=== PATIENT | male | born 1970 | race Caucasian/White ===

== ENCOUNTER 2017-07-27 15:32 | Emergency (ER) | payer MEDICAID, BC | END 2017-07-28 00:44 | disposition left against medical advice (07) | LOC: FTE 07-28 00:44 | DX: S82.91XA Unspecified fracture of right lower leg, initial encounter for closed fracture (principal); I10 Essential (primary) hypertension; E11.9 Type 2 diabetes mellitus without complications; X58.XXXA Exposure to other specified factors, initial encounter; Y92.9 Unspecified place or not applicable | CPT/HCPCS: 29515; 73610-RT; 73700; 93971; 99284-25 ==

== ENCOUNTER 2017-07-29 12:41 | Emergency (ER) | payer MEDICAID | END 2017-07-29 14:02 | disposition home or self-care (01) | LOC: FTE 12:41 | DX: M79.604 Pain in right leg (principal); I10 Essential (primary) hypertension; E11.9 Type 2 diabetes mellitus without complications | CPT/HCPCS: 99283; Z7502 ==

== ENCOUNTER 2018-04-06 03:09 | Inpatient (IN) | payer MEDICAID, OTHER ==
[2018-04-06] MEDS: SODIUM CHLORIDE 0.9% 500 ML BAG IV* (03:16)
[2018-04-06] MEDS ORDERED: FENTAnyl 50 MCG/ML VIAL IV (03:30)
[2018-04-06 03:51] LABS: ADD MAN DIFF? NO
[2018-04-06] MEDS ORDERED: ONDANSETRON 4 MG INJ IV (04:00)
[2018-04-06] MEDS ORDERED: ACETAMINOPHEN 325 MG TAB PO (04:00)
[2018-04-06 04:06] LABS: INR 1.16; PT RATIO 1.2
[2018-04-06 04:07] LABS: AADO2 Arterial 276.4 mmHg (7.0-24.0); ABNORMAL IP MESSAGE 1; Allen Test ACCEPTAB; Arterial Base Excess -3.5 mmol/L (-3.0-3); Arterial Blood Gas Oxygen Sat 99.3 mmHG (95.0-98.0); Arterial COHb 0.6 % (0.0-3.0); Arterial Fraction of Oxyhgb 98.6 % (93.0-99.0); Arterial HCO3 22.2 mmol/L (22.0-26.0); Arterial MetHb 0.1 % (0.0-1.5); Arterial Total Hemglobin 11.8 g/dl (12.0-18.0); Arterial pCO2 42.1 mmhg (35-45); BASOPHIL # 0.1 10^3/ul (0.0-0.1); BASOPHILS % 0.4 % (0.0-2.0); EOSINOPHILS # 0.1 10^3/ul (0.0-0.5); EOSINOPHILS % 0.7 % (0.0-7.0); HEMATOCRIT 36.9 % (42.0-52.0); HEMOGLOBIN 11.5 g/dl (14.0-18.0); LYMPHOCYTES # 4.4 10^3/ul (0.8-2.9); LYMPHOCYTES % 24.6 % (15.0-51.0); MEAN CORPUSCULAR HEMOGLOBIN 29.9 pg (29.0-33.0); MEAN CORPUSCULAR HGB CONC 31.2 g/dl (32.0-37.0); MEAN CORPUSCULAR VOLUME 96.1 fl (82.0-101.0); MODE VENT - AC; MONOCYTE # 0.7 10^3/ul (0.3-0.9); MONOCYTES % 3.9 % (0.0-11.0); NEUTROPHIL # 12.6 10^3/ul (1.6-7.5); NEUTROPHILS % 69.9 % (39.0-77.0); PARTIAL THROMBOPLASTIN TIME 35.5 Sec (23.0-35.0); PLATELET COUNT 300 10^3/UL (140-415); POSITIVE DIFF @See below; RED BLOOD COUNT 3.84 10^6/ul (4.70-6.10); RED CELL DISTRIBUTION WIDTH 13.7 % (11.5-14.5); Site Right Radial
[2018-04-06 04:09] LABS: ALANINE AMINOTRANSFERASE 24 IU/L (13-69); ALBUMIN 3.7 g/dl (3.3-4.9); ALBUMIN/GLOBULIN RATIO 1.02; ALKALINE PHOSPHATASE 161 IU/L (42-121); ANION GAP 20 (5-13); ASPARTATE AMINO TRANSFERASE 40 IU/L (15-46); BILIRUBIN,INDIRECT 0.2 mg/dl (0-1.1); BILIRUBIN,TOTAL 0.2 mg/dl (0.2-1.3); BLOOD UREA NITROGEN 49 mg/dl (7-20); CALCIUM 9.5 mg/dl (8.4-10.2); CARBON DIOXIDE 20 mmol/L (21-31); CHLORIDE 100 mmol/L (97-110); CREATININE 5.45 mg/dl (0.61-1.24); Estimated GFR 11 mL/min (>60); GLUCOSE 142 mg/dl (70-220); MAGNESIUM 2.5 mg/dl (1.7-2.5); PHOSPHORUS 9.8 mg/dl (2.5-4.9); POTASSIUM 5.5 mmol/L (3.5-5.1); SODIUM 140 mmol/L (135-144); TOTAL PROTEIN 7.3 g/dl (6.1-8.1)
[2018-04-06] MEDS ORDERED: PROPOFOL 100 ML (04:13)
[2018-04-06 04:20] LABS: TROPONIN-I 0.052 ng/ml (0.000-0.120)
[2018-04-06] MEDS ORDERED: MEPERIDINE 25 MG INJ IV ×2 (04:30)
[2018-04-06] MEDS ORDERED: ACETAMINOPHEN 650 MG SUPP PR (04:30)
[2018-04-06] MEDS: SODIUM CHLORIDE 0.9% 1L BAG IV* (04:44)
[2018-04-06] MEDS: FENTAnyl 50 MCG/ML VIAL IV ×4 (04:46→05:10)
[2018-04-06] MEDS: CEFEPIME 1GM/50 ML (PMX) 50 ML IVPB (05:22)
[2018-04-06] MEDS: VANCOMYCIN 1 GM (PMX) 250 ML IVPB (05:22)
[2018-04-06] MEDS ORDERED: VANCOMYCIN IV PER PHARMACY XX (06:00)
[2018-04-06] MEDS ORDERED: IPRATROPIUM (HFA) 12.9 GM INHALER INH (06:00)
[2018-04-06] MEDS: HEPARIN 5,000 UNIT/1 ML VIAL SC ×3 (06:00→22:00)
[2018-04-06] MEDS ORDERED: DOCUSATE SODIUM 100 MG CAP PO (06:00)
[2018-04-06] MEDS ORDERED: BISACODYL (EC) 5 MG TAB PO (06:00)
[2018-04-06] MEDS ORDERED: ALBUTEROL HFA 8 GM INHALER INH (06:00)
[2018-04-06] MEDS: SOD CHLORIDE 0.9% 1,000 ML IV (06:16)
[2018-04-06] MEDS: VECURONIUM 100 MG in DEXTROSE 5% 100 ML IV (06:17)
[2018-04-06] MEDS: PANTOPRAZOLE 40 MG INJ IV (06:20)
[2018-04-06] MEDS: PIPER-TAZO 2.25 GM (PMX) 50 ML IVPB ×2 (06:20→17:57)
[2018-04-06] MEDS: PROPOFOL 100 ML IV (06:30)
[2018-04-06] MEDS: MIDAZOLAM (DRIP) 50 mg/50 mL 50 ML IV ×3 (06:31→19:23)
[2018-04-06] MEDS ORDERED: CA CHLORIDE 10% 10 ML SYRINGE (07:00)
[2018-04-06] MEDS ORDERED: NA BICARBONATE 8.4% 50 ML SYG (07:00)
[2018-04-06] MEDS ORDERED: EPINEPHrine 0.1 MG/ML SYG (07:00)
[2018-04-06 08:56] LABS: LACTIC ACID 0.9 mmol/L (0.5-2.0)
[2018-04-06 09:31] LABS: ADD MAN DIFF? NO
[2018-04-06 09:43] LABS: WHITE BLOOD COUNT 11.5 10^3/ul (4.8-10.8)
[2018-04-06 09:43] LABS: ABNORMAL IP MESSAGE 1; BASOPHILS % 0.3 % (0.0-2.0); EOSINOPHILS % 0.1 % (0.0-7.0); HEMOGLOBIN 10.6 g/dl (14.0-18.0); LYMPHOCYTES # 0.7 10^3/ul (0.8-2.9); LYMPHOCYTES % 6.5 % (15.0-51.0); MEAN CORPUSCULAR HEMOGLOBIN 29.9 pg (29.0-33.0); MEAN CORPUSCULAR HGB CONC 32.1 g/dl (32.0-37.0); MEAN PLATELET VOLUME 9.8 fl (7.4-10.4); MONOCYTE # 0.8 10^3/ul (0.3-0.9); MONOCYTES % 6.5 % (0.0-11.0); NEUTROPHIL # 9.9 10^3/ul (1.6-7.5); PLATELET COUNT 200 10^3/UL (140-415); POSITIVE DIFF @See below; RED BLOOD COUNT 3.55 10^6/ul (4.70-6.10); RED CELL DISTRIBUTION WIDTH 13.7 % (11.5-14.5)
[2018-04-06 09:49] LABS: AADO2 Arterial 174.7 mmHg (7.0-24.0); Allen Test ACCEPTAB; Arterial Blood Gas Oxygen Sat 98.2 mmHG (95.0-98.0); Arterial COHb 0.6 % (0.0-3.0); Arterial Fraction of Oxyhgb 97.3 % (93.0-99.0); Arterial HCO3 21.6 mmol/L (22.0-26.0); Arterial MetHb 0.3 % (0.0-1.5); Arterial Total Hemglobin 12.1 g/dl (12.0-18.0); Arterial pCO2 34.3 mmhg (35-45); MODE VENT - AC; Site Right Radial; Temperature 32.8 C
[2018-04-06 09:50] LABS: ALANINE AMINOTRANSFERASE 37 IU/L (13-69); ALBUMIN/GLOBULIN RATIO 0.96; ALKALINE PHOSPHATASE 147 IU/L (42-121); ANION GAP 17 (5-13); ASPARTATE AMINO TRANSFERASE 35 IU/L (15-46); BILIRUBIN,INDIRECT 0.1 mg/dl (0-1.1); BILIRUBIN,TOTAL 0.1 mg/dl (0.2-1.3); BLOOD UREA NITROGEN 52 mg/dl (7-20); CALCIUM 8.6 mg/dl (8.4-10.2); CARBON DIOXIDE 19 mmol/L (21-31); CHLORIDE 102 mmol/L (97-110); CREATININE 5.14 mg/dl (0.61-1.24); Estimated GFR 12 mL/min (>60); GLUCOSE 141 mg/dl (70-220); MAGNESIUM 2.3 mg/dl (1.7-2.5); POTASSIUM 4.2 mmol/L (3.5-5.1); SODIUM 138 mmol/L (135-144); TOTAL PROTEIN 6.1 g/dl (6.1-8.1)
[2018-04-06 09:51] LABS: CREATINE KINASE 173 IU/L (23-200)
[2018-04-06 09:51] LABS: LACTIC ACID 0.9 mmol/L (0.5-2.0)
[2018-04-06 10:03] LABS: CK INDEX 3.9; CK-MB 6.68 ng/ml (0.0-2.4)
[2018-04-06 10:07] LABS: TROPONIN-I 0.123 ng/ml (0.000-0.120)
[2018-04-06] MEDS: FENTAnyl (DRIP) 1000 mcg/100mL 100 ML IV (11:59)
[2018-04-06] MEDS: OCULAR LUBRICANT 3.5 GM OPH OINT BOTH EYES ×3 (12:00→17:59)
[2018-04-06] MEDS: ARTIFICIAL TEARS 15 ML OPH BOTH EYES ×3 (12:00→18:00)
[2018-04-06 13:43] LABS: LACTIC ACID 0.8 mmol/L (0.5-2.0)
[2018-04-06 13:43] LABS: ADD UMIC YES; UR AMORPHOUS CRYSTAL FEW /HPF (NONE SEEN); UR ASCORBIC ACID NEGATIVE (NEGATIVE); UR BACTERIA FEW /HPF (NONE SEEN); UR BILIRUBIN (Dip) NEGATIVE (NEGATIVE); UR BLOOD (Dip) 1+ mg/dL (NEGATIVE); UR CLARITY SLIGHTLY CLOUDY (CLEAR); UR COLOR YELLOW (YELLOW); UR GLUCOSE (Dip) 2+ mg/dL (NEGATIVE); UR KETONES (Dip) 1+ mg/dL (NEGATIVE); UR LEUKOCYTE ESTERASE (Dip) NEGATIVE Leu/ul (NEGATIVE); UR NITRITE (Dip) NEGATIVE (NEGATIVE); UR RBC 8 /HPF (0-5); UR SPECIFIC GRAVITY (Dip) 1.014 (1.003-1.030); UR TOTAL PROTEIN (Dip) 3+ mg/dl (NEGATIVE); UR UROBILINOGEN (Dip) NEGATIVE (NEGATIVE); UR WBC 7 /HPF (0-5)
[2018-04-06 13:56] LABS: AMPHETAMINE/METHAMPHETAMINE Negative (NEGATIVE); BARBITURATES Negative (NEGATIVE); CANNABINOIDS Negative (NEGATIVE); COCAINE Negative (NEGATIVE); OPIATES Negative (NEGATIVE)
[2018-04-06 14:10] LABS: BENZODIAZEPINES Positive (NEGATIVE)
[2018-04-06 14:57] LABS: ADD MAN DIFF? NO
[2018-04-06 14:59] LABS: WHITE BLOOD COUNT 15.4 10^3/ul (4.8-10.8)
[2018-04-06 14:59] LABS: ABNORMAL IP MESSAGE 1; BASOPHIL # 0.1 10^3/ul (0.0-0.1); BASOPHILS % 0.5 % (0.0-2.0); HEMATOCRIT 35.6 % (42.0-52.0); HEMOGLOBIN 11.5 g/dl (14.0-18.0); LYMPHOCYTES # 0.9 10^3/ul (0.8-2.9); LYMPHOCYTES % 5.9 % (15.0-51.0); MEAN CORPUSCULAR HEMOGLOBIN 29.9 pg (29.0-33.0); MEAN CORPUSCULAR HGB CONC 32.3 g/dl (32.0-37.0); MEAN CORPUSCULAR VOLUME 92.5 fl (82.0-101.0); MEAN PLATELET VOLUME 10.1 fl (7.4-10.4); MONOCYTE # 0.8 10^3/ul (0.3-0.9); MONOCYTES % 5.2 % (0.0-11.0); NEUTROPHIL # 13.4 10^3/ul (1.6-7.5); NEUTROPHILS % 87.4 % (39.0-77.0); PLATELET COUNT 204 10^3/UL (140-415); POSITIVE DIFF @See below; RED BLOOD COUNT 3.85 10^6/ul (4.70-6.10); RED CELL DISTRIBUTION WIDTH 13.7 % (11.5-14.5)
[2018-04-06 15:18] LABS: CREATINE KINASE 129 IU/L (23-200)
[2018-04-06 15:20] LABS: ALANINE AMINOTRANSFERASE 20 IU/L (13-69); ALBUMIN 3.1 g/dl (3.3-4.9); ALKALINE PHOSPHATASE 127 IU/L (42-121); ANION GAP 18 (5-13); ASPARTATE AMINO TRANSFERASE 34 IU/L (15-46); BLOOD UREA NITROGEN 57 mg/dl (7-20); CALCIUM 8.7 mg/dl (8.4-10.2); CARBON DIOXIDE 20 mmol/L (21-31); CHLORIDE 101 mmol/L (97-110); CREATININE 5.55 mg/dl (0.61-1.24); Estimated GFR 11 mL/min (>60); GLUCOSE 146 mg/dl (70-220); MAGNESIUM 2.2 mg/dl (1.7-2.5); POTASSIUM 4.1 mmol/L (3.5-5.1); SODIUM 139 mmol/L (135-144); TOTAL PROTEIN 5.9 g/dl (6.1-8.1)
[2018-04-06 15:30] LABS: CK-MB 6.47 ng/ml (0.0-2.4); TROPONIN-I 0.094 ng/ml (0.000-0.120)
[2018-04-06 16:05] LABS: AADO2 Arterial 149.1 mmHg (7.0-24.0); Arterial Base Excess -5.3 mmol/L (-3.0-3); Arterial Blood Gas Oxygen Sat 95.3 mmHG (95.0-98.0); Arterial COHb 0.5 % (0.0-3.0); Arterial Fraction of Oxyhgb 94.5 % (93.0-99.0); Arterial MetHb 0.3 % (0.0-1.5); Arterial Total Hemglobin 12.9 g/dl (12.0-18.0); Arterial pCO2 31.9 mmhg (35-45); MODE VENT - AC; Site Right Brachial; Temperature 32.9 C
[2018-04-06] MEDS: ASPIRIN 300 MG SUPP PR (16:20)
[2018-04-06 17:31] LABS: LACTIC ACID 0.9 mmol/L (0.5-2.0)
[2018-04-06] MEDS: ATORVASTATIN 20 MG TAB PO (20:45)
[2018-04-06 21:18] LABS: ADD MAN DIFF? NO
[2018-04-06 21:19] LABS: BASOPHIL # 0.1 10^3/ul (0.0-0.1); BASOPHILS % 0.5 % (0.0-2.0); HEMOGLOBIN 12.1 g/dl (14.0-18.0); LYMPHOCYTES % 5.8 % (15.0-51.0); MEAN CORPUSCULAR HEMOGLOBIN 29.5 pg (29.0-33.0); MEAN CORPUSCULAR HGB CONC 31.8 g/dl (32.0-37.0); MEAN CORPUSCULAR VOLUME 92.7 fl (82.0-101.0); MEAN PLATELET VOLUME 10.2 fl (7.4-10.4); MONOCYTE # 0.7 10^3/ul (0.3-0.9); MONOCYTES % 4.2 % (0.0-11.0); NEUTROPHIL # 15.5 10^3/ul (1.6-7.5); NEUTROPHILS % 88.2 % (39.0-77.0); PLATELET COUNT 211 10^3/UL (140-415); POSITIVE DIFF @See below; RED CELL DISTRIBUTION WIDTH 13.7 % (11.5-14.5)
[2018-04-06 21:19] LABS: WHITE BLOOD COUNT 17.6 10^3/ul (4.8-10.8)
[2018-04-06 21:33] LABS: Allen Test ACCEPTAB; Arterial Base Excess -2.6 mmol/L (-3.0-3); Arterial Blood Gas Oxygen Sat 95.2 mmHG (95.0-98.0); Arterial COHb 0.7 % (0.0-3.0); Arterial Fraction of Oxyhgb 94.2 % (93.0-99.0); Arterial HCO3 24.3 mmol/L (22.0-26.0); Arterial MetHb 0.3 % (0.0-1.5); MODE VENT-AC; Site Right Radial
[2018-04-06 21:51] LABS: ALANINE AMINOTRANSFERASE 29 IU/L (13-69); ALBUMIN 2.9 g/dl (3.3-4.9); ALKALINE PHOSPHATASE 129 IU/L (42-121); ANION GAP 15 (5-13); ASPARTATE AMINO TRANSFERASE 25 IU/L (15-46); BILIRUBIN,INDIRECT 0.1 mg/dl (0-1.1); BILIRUBIN,TOTAL 0.1 mg/dl (0.2-1.3); BLOOD UREA NITROGEN 61 mg/dl (7-20); CALCIUM 8.2 mg/dl (8.4-10.2); CARBON DIOXIDE 21 mmol/L (21-31); CHLORIDE 102 mmol/L (97-110); CREATINE KINASE 94 IU/L (23-200); CREATININE 5.54 mg/dl (0.61-1.24); Estimated GFR 11 mL/min (>60); GLUCOSE 142 mg/dl (70-220); MAGNESIUM 2.3 mg/dl (1.7-2.5); POTASSIUM 4.5 mmol/L (3.5-5.1); SODIUM 138 mmol/L (135-144); TOTAL PROTEIN 6.1 g/dl (6.1-8.1)
[2018-04-06 22:00] LABS: CK INDEX 6.4; CK-MB 6.05 ng/ml (0.0-2.4); TROPONIN-I 0.075 ng/ml (0.000-0.120)
[2018-04-06 23:31] LABS: Allen Test ACCEPTAB; Arterial Base Excess -4.9 mmol/L (-3.0-3); Arterial COHb 0.7 % (0.0-3.0); Arterial MetHb 0.3 % (0.0-1.5); Arterial Total Hemglobin 13.5 g/dl (12.0-18.0); Arterial pCO2 30.8 mmhg (35-45); MODE VENT - AC; Site Right Radial; Temperature 33.1 C
[2018-04-07] MEDS: SOD CHLORIDE 0.9% 1,000 ML IV ×2 (00:04→21:00)
[2018-04-07 03:14] LABS: AADO2 Arterial 187.5 mmHg (7.0-24.0); Allen Test ACCEPTAB; Arterial Base Excess -6.1 mmol/L (-3.0-3); Arterial Blood Gas Oxygen Sat 96.2 mmHG (95.0-98.0); Arterial COHb 0.6 % (0.0-3.0); Arterial Fraction of Oxyhgb 95.3 % (93.0-99.0); Arterial HCO3 18.2 mmol/L (22.0-26.0); Arterial MetHb 0.3 % (0.0-1.5); Arterial Total Hemglobin 13.3 g/dl (12.0-18.0); Arterial pCO2 26.9 mmhg (35-45); MODE VENT-AC; Site Right Radial; Temperature 32.9 C
[2018-04-07] MEDS: ACETAMINOPHEN 650MG/20.3ML CUP PO ×4 (04:30→21:57)
[2018-04-07 04:34] LABS: ADD MAN DIFF? NO
[2018-04-07 04:39] LABS: ABNORMAL IP MESSAGE 1; BASOPHIL # 0.1 10^3/ul (0.0-0.1); BASOPHILS % 0.6 % (0.0-2.0); EOSINOPHILS % 0.1 % (0.0-7.0); HEMATOCRIT 37.7 % (42.0-52.0); HEMOGLOBIN 12.3 g/dl (14.0-18.0); LYMPHOCYTES % 5.3 % (15.0-51.0); MEAN CORPUSCULAR HEMOGLOBIN 29.9 pg (29.0-33.0); MEAN CORPUSCULAR HGB CONC 32.6 g/dl (32.0-37.0); MEAN CORPUSCULAR VOLUME 91.5 fl (82.0-101.0); MONOCYTE # 0.7 10^3/ul (0.3-0.9); MONOCYTES % 3.8 % (0.0-11.0); NEUTROPHIL # 15.9 10^3/ul (1.6-7.5); NEUTROPHILS % 88.9 % (39.0-77.0); PLATELET COUNT 214 10^3/UL (140-415); POSITIVE DIFF @See below; RED BLOOD COUNT 4.12 10^6/ul (4.70-6.10); RED CELL DISTRIBUTION WIDTH 13.8 % (11.5-14.5)
[2018-04-07 04:39] LABS: WHITE BLOOD COUNT 17.9 10^3/ul (4.8-10.8)
[2018-04-07 05:01] LABS: CREATINE KINASE 73 IU/L (23-200)
[2018-04-07 05:03] LABS: ALANINE AMINOTRANSFERASE 23 IU/L (13-69); ALBUMIN 2.9 g/dl (3.3-4.9); ALKALINE PHOSPHATASE 134 IU/L (42-121); ANION GAP 18 (5-13); ASPARTATE AMINO TRANSFERASE 23 IU/L (15-46); BILIRUBIN,INDIRECT 0.1 mg/dl (0-1.1); BILIRUBIN,TOTAL 0.1 mg/dl (0.2-1.3); BLOOD UREA NITROGEN 63 mg/dl (7-20); CALCIUM 8.3 mg/dl (8.4-10.2); CARBON DIOXIDE 20 mmol/L (21-31); CHLORIDE 102 mmol/L (97-110); CREATININE 5.79 mg/dl (0.61-1.24); Estimated GFR 10 mL/min (>60); GLUCOSE 128 mg/dl (70-220); MAGNESIUM 2.4 mg/dl (1.7-2.5); POTASSIUM 4.6 mmol/L (3.5-5.1); SODIUM 140 mmol/L (135-144); TOTAL PROTEIN 6.1 g/dl (6.1-8.1)
[2018-04-07 05:12] LABS: CK INDEX 7.8; CK-MB 5.72 ng/ml (0.0-2.4)
[2018-04-07] MEDS ORDERED: HEPARIN 5,000 UNIT/0.5 ML VIAL ×2 (05:34→21:01)
[2018-04-07] MEDS: ACETAMINOPHEN 650 MG SUPP PR ×4 (05:37→17:49)
[2018-04-07] MEDS: OCULAR LUBRICANT 3.5 GM OPH OINT BOTH EYES ×4 (05:38→17:50)
[2018-04-07] MEDS: ARTIFICIAL TEARS 15 ML OPH BOTH EYES ×4 (05:38→17:50)
[2018-04-07] MEDS: PANTOPRAZOLE 40 MG INJ IV (05:38)
[2018-04-07] MEDS: PIPER-TAZO 2.25 GM (PMX) 50 ML IVPB ×3 (05:39→21:16)
[2018-04-07] MEDS: HEPARIN 5,000 UNIT/1 ML VIAL SC ×3 (05:40→21:16)
[2018-04-07] MEDS: MIDAZOLAM (DRIP) 50 mg/50 mL 50 ML IV (05:58)
[2018-04-07 08:13] LABS: ADD MAN DIFF? NO
[2018-04-07 08:18] LABS: WHITE BLOOD COUNT 17.9 10^3/ul (4.8-10.8)
[2018-04-07 08:18] LABS: BASOPHIL # 0.1 10^3/ul (0.0-0.1); BASOPHILS % 0.3 % (0.0-2.0); EOSINOPHILS # 0.1 10^3/ul (0.0-0.5); EOSINOPHILS % 0.3 % (0.0-7.0); HEMATOCRIT 38.3 % (42.0-52.0); HEMOGLOBIN 12.7 g/dl (14.0-18.0); LYMPHOCYTES # 1.1 10^3/ul (0.8-2.9); LYMPHOCYTES % 6.1 % (15.0-51.0); MEAN CORPUSCULAR HEMOGLOBIN 30.2 pg (29.0-33.0); MEAN CORPUSCULAR HGB CONC 33.2 g/dl (32.0-37.0); MEAN PLATELET VOLUME 10.4 fl (7.4-10.4); MONOCYTE # 0.6 10^3/ul (0.3-0.9); MONOCYTES % 3.2 % (0.0-11.0); NEUTROPHIL # 15.8 10^3/ul (1.6-7.5); NEUTROPHILS % 88.4 % (39.0-77.0); PLATELET COUNT 225 10^3/UL (140-415); POSITIVE DIFF @See below; RED BLOOD COUNT 4.21 10^6/ul (4.70-6.10); RED CELL DISTRIBUTION WIDTH 14.1 % (11.5-14.5)
[2018-04-07] MEDS: VECURONIUM 100 MG in DEXTROSE 5% 100 ML IV (08:21)
[2018-04-07 08:37] LABS: INR 1.41; PROTIME 17.5 Sec (11.9-14.9); PT RATIO 1.4
[2018-04-07 08:38] LABS: PARTIAL THROMBOPLASTIN TIME 42.2 Sec (23.0-35.0)
[2018-04-07 08:41] LABS: AMYLASE 261 U/L (11-123)
[2018-04-07 08:41] LABS: LIPASE 1707 U/L (23-300)
[2018-04-07 08:47] LABS: ALANINE AMINOTRANSFERASE 20 IU/L (13-69); ALBUMIN 3.1 g/dl (3.3-4.9); ALKALINE PHOSPHATASE 128 IU/L (42-121); ANION GAP 17 (5-13); ASPARTATE AMINO TRANSFERASE 22 IU/L (15-46); BLOOD UREA NITROGEN 66 mg/dl (7-20); CALCIUM 8.6 mg/dl (8.4-10.2); CARBON DIOXIDE 21 mmol/L (21-31); CHLORIDE 101 mmol/L (97-110); CREATININE 6.04 mg/dl (0.61-1.24); Estimated GFR 10 mL/min (>60); GLUCOSE 118 mg/dl (70-220); MAGNESIUM 2.3 mg/dl (1.7-2.5); POTASSIUM 4.6 mmol/L (3.5-5.1); SODIUM 139 mmol/L (135-144); TOTAL PROTEIN 5.9 g/dl (6.1-8.1)
[2018-04-07 09:04] LABS: AADO2 Arterial 182.6 mmHg (7.0-24.0); Allen Test ACCEPTAB; Arterial Base Excess -4.5 mmol/L (-3.0-3); Arterial Blood Gas Oxygen Sat 96.3 mmHG (95.0-98.0); Arterial COHb 0.6 % (0.0-3.0); Arterial Fraction of Oxyhgb 95.4 % (93.0-99.0); Arterial HCO3 19.9 mmol/L (22.0-26.0); Arterial MetHb 0.3 % (0.0-1.5); Arterial Total Hemglobin 13.3 g/dl (12.0-18.0); MODE VENT - AC; Site Left Radial
[2018-04-07 09:11] LABS: HEPATITIS B SURFACE ANTIGEN NEGATIVE (NEGATIVE)
[2018-04-07] MEDS: ASPIRIN 300 MG SUPP PR (09:24)
[2018-04-07 09:29] LABS: HEPATITIS B SURFACE ANTIBODY POSITIVE (NEGATIVE)
[2018-04-07 10:03] LABS: CREATINE KINASE 69 IU/L (23-200)
[2018-04-07 10:58] LABS: ANISOCYTOSIS 1+ (0-0); BAND NEUTROPHILS #M 7.5 10^3/ul (0.0-0.6); BAND NEUTROPHILS % (M) 42 % (0-4); BURR CELLS 3+ (0-0); EOSINOPHILS % (M) 1 % (0-7); LYMPHOCYTES #M 1.2 10^3/ul (0.8-2.9); LYMPHOCYTES % (M) 7 % (15-51); MONOCYTE #M 0.3 10^3/ul (0.3-0.9); MONOCYTES % (M) 2 % (0-11); PLATELET ESTIMATE NORMAL; POIKILOCYTOSIS 3+ (0-0); POLYCHROMASIA 1+ (0-0); SEG NEUT #M 9.9 10^3/ul (1.6-7.5); SEGMENTED NEUTROPHILS (M) % 48 % (39-77); SMUDGE%M 17 % (0-0); SPHEROCYTES 1+ (0-0)
[2018-04-07 15:10] LABS: HEMATOCRIT 36.4 % (42.0-52.0); HEMOGLOBIN 11.9 g/dl (14.0-18.0); MEAN CORPUSCULAR HEMOGLOBIN 29.9 pg (29.0-33.0); MEAN CORPUSCULAR HGB CONC 32.7 g/dl (32.0-37.0); MEAN CORPUSCULAR VOLUME 91.5 fl (82.0-101.0); MEAN PLATELET VOLUME 10.5 fl (7.4-10.4); PLATELET COUNT 231 10^3/UL (140-415); POSITIVE DIFF @See below; RED BLOOD COUNT 3.98 10^6/ul (4.70-6.10)
[2018-04-07 15:10] LABS: WHITE BLOOD COUNT 19.6 10^3/ul (4.8-10.8)
[2018-04-07 15:18] LABS: ADD MAN DIFF? YES
[2018-04-07 15:20] LABS: ALANINE AMINOTRANSFERASE 25 IU/L (13-69); ALBUMIN 2.6 g/dl (3.3-4.9); ALBUMIN/GLOBULIN RATIO 0.86; ANION GAP 15 (5-13); ASPARTATE AMINO TRANSFERASE 19 IU/L (15-46); BILIRUBIN,INDIRECT 0.2 mg/dl (0-1.1); BILIRUBIN,TOTAL 0.2 mg/dl (0.2-1.3); BLOOD UREA NITROGEN 68 mg/dl (7-20); CALCIUM 7.8 mg/dl (8.4-10.2); CARBON DIOXIDE 17 mmol/L (21-31); CHLORIDE 105 mmol/L (97-110); CREATININE 5.54 mg/dl (0.61-1.24); Estimated GFR 11 mL/min (>60); GLUCOSE 111 mg/dl (70-220); MAGNESIUM 2.3 mg/dl (1.7-2.5); POTASSIUM 4.8 mmol/L (3.5-5.1); SODIUM 137 mmol/L (135-144); TOTAL PROTEIN 5.6 g/dl (6.1-8.1)
[2018-04-07 15:21] LABS: CREATINE KINASE 62 IU/L (23-200)
[2018-04-07 15:25] LABS: ALKALINE PHOSPHATASE 116 IU/L (42-121)
[2018-04-07 15:32] LABS: CK INDEX 7.9; CK-MB 4.92 ng/ml (0.0-2.4); TROPONIN-I 0.052 ng/ml (0.000-0.120)
[2018-04-07] MEDS: PHENYLephrine 40 MG in DEXTROSE 5% 496 ML IV (17:01)
[2018-04-07 17:04] LABS: ANISOCYTOSIS 1+ (0-0); BAND NEUTROPHILS #M 8.4 10^3/ul (0.0-0.6); BAND NEUTROPHILS % (M) 43 % (0-4); GIANT THROMBO% (M) 1 % (0-0); LYMPHOCYTES #M 0.3 10^3/ul (0.8-2.9); LYMPHOCYTES % (M) 2 % (15-51); MONOCYTE #M 0.1 10^3/ul (0.3-0.9); MONOCYTES % (M) 1 % (0-11); PLATELET ESTIMATE NORMAL; POIKILOCYTOSIS 3+ (0-0); SEG NEUT #M 12.2 10^3/ul (1.6-7.5); SEGMENTED NEUTROPHILS (M) % 54 % (39-77); SMUDGE%M 18 % (0-0)
[2018-04-07] MEDS: ATORVASTATIN 20 MG TAB PO (21:06)
[2018-04-07 21:17] LABS: AADO2 Arterial 171.4 mmHg (7.0-24.0); Allen Test ACCEPTAB; Arterial Fraction of Oxyhgb 94.8 % (93.0-99.0); Arterial HCO3 18.1 mmol/L (22.0-26.0); Arterial MetHb 0.3 % (0.0-1.5); Arterial Total Hemglobin 13.7 g/dl (12.0-18.0); Arterial pCO2 29.7 mmhg (35-45); MODE VENT - AC; Site Right Radial; Temperature 35.4 C
[2018-04-07 21:20] LABS: ABNORMAL IP MESSAGE 1; HEMATOCRIT 39.3 % (42.0-52.0); HEMOGLOBIN 12.8 g/dl (14.0-18.0); MEAN CORPUSCULAR HEMOGLOBIN 29.4 pg (29.0-33.0); MEAN CORPUSCULAR HGB CONC 32.6 g/dl (32.0-37.0); MEAN CORPUSCULAR VOLUME 90.3 fl (82.0-101.0); MEAN PLATELET VOLUME 10.5 fl (7.4-10.4); PLATELET COUNT 291 10^3/UL (140-415); POSITIVE DIFF @See below; RED BLOOD COUNT 4.35 10^6/ul (4.70-6.10)
[2018-04-07 21:20] LABS: WHITE BLOOD COUNT 27.8 10^3/ul (4.8-10.8)
[2018-04-07 21:24] LABS: ADD MAN DIFF? YES
[2018-04-07 21:43] LABS: ALANINE AMINOTRANSFERASE 26 IU/L (13-69); ALBUMIN 2.9 g/dl (3.3-4.9); ALBUMIN/GLOBULIN RATIO 1.11; ALKALINE PHOSPHATASE 121 IU/L (42-121); ANION GAP 19 (5-13); ASPARTATE AMINO TRANSFERASE 21 IU/L (15-46); BLOOD UREA NITROGEN 74 mg/dl (7-20); CALCIUM 8.3 mg/dl (8.4-10.2); CARBON DIOXIDE 18 mmol/L (21-31); CHLORIDE 103 mmol/L (97-110); CREATININE 5.88 mg/dl (0.61-1.24); Estimated GFR 10 mL/min (>60); GLUCOSE 109 mg/dl (70-220); LIPASE 1716 U/L (23-300); MAGNESIUM 2.3 mg/dl (1.7-2.5); POTASSIUM 5.1 mmol/L (3.5-5.1); SODIUM 140 mmol/L (135-144); TOTAL PROTEIN 5.5 g/dl (6.1-8.1)
[2018-04-07 21:46] LABS: AMYLASE 360 U/L (11-123)
[2018-04-07] MEDS: FENTAnyl (DRIP) 1000 mcg/100mL 100 ML IV (21:49)
[2018-04-07 22:00] LABS: ANISOCYTOSIS 1+ (0-0); BAND NEUTROPHILS #M 6.3 10^3/ul (0.0-0.6); BAND NEUTROPHILS % (M) 23 % (0-4); LYMPHOCYTES #M 1.9 10^3/ul (0.8-2.9); LYMPHOCYTES % (M) 7 % (15-51); MONOCYTE #M 0.5 10^3/ul (0.3-0.9); MONOCYTES % (M) 2 % (0-11); PLATELET ESTIMATE NORMAL; POIKILOCYTOSIS 3+ (0-0); SEG NEUT #M 20.7 10^3/ul (1.6-7.5); SEGMENTED NEUTROPHILS (M) % 68 % (39-77); SMUDGE%M 1 % (0-0)
[2018-04-08] MEDS: ARTIFICIAL TEARS 15 ML OPH BOTH EYES ×4 (00:14→17:35)
[2018-04-08] MEDS: OCULAR LUBRICANT 3.5 GM OPH OINT BOTH EYES ×4 (00:17→17:35)
[2018-04-08] MEDS: MIDAZOLAM (DRIP) 50 mg/50 mL 50 ML IV ×2 (01:04→12:00)
[2018-04-08 03:18] LABS: AADO2 Arterial 151.4 mmHg (7.0-24.0); Allen Test ACCEPTAB; Arterial Base Excess -2.9 mmol/L (-3.0-3); Arterial Blood Gas Oxygen Sat 96.6 mmHG (95.0-98.0); Arterial COHb 0.8 % (0.0-3.0); Arterial Fraction of Oxyhgb 95.5 % (93.0-99.0); Arterial HCO3 20.6 mmol/L (22.0-26.0); Arterial MetHb 0.3 % (0.0-1.5); Arterial Total Hemglobin 15.5 g/dl (12.0-18.0); Arterial pCO2 32.6 mmhg (35-45); MODE VENT - AC; Site Right Radial
[2018-04-08] MEDS: PHENYLephrine 40 MG in DEXTROSE 5% 496 ML IV ×2 (04:05→16:16)
[2018-04-08] MEDS ORDERED: HEPARIN 5,000 UNIT/0.5 ML VIAL ×3 (04:09→21:01)
[2018-04-08] MEDS: ACETAMINOPHEN 650MG/20.3ML CUP PO ×4 (04:27→21:41)
[2018-04-08 04:52] LABS: ADD MAN DIFF? NO
[2018-04-08 04:57] LABS: WHITE BLOOD COUNT 24.5 10^3/ul (4.8-10.8)
[2018-04-08 04:57] LABS: ABNORMAL IP MESSAGE 1; BASOPHIL # 0.1 10^3/ul (0.0-0.1); BASOPHILS % 0.4 % (0.0-2.0); EOSINOPHILS # 0.1 10^3/ul (0.0-0.5); EOSINOPHILS % 0.2 % (0.0-7.0); HEMATOCRIT 34.9 % (42.0-52.0); HEMOGLOBIN 11.4 g/dl (14.0-18.0); LYMPHOCYTES # 1.9 10^3/ul (0.8-2.9); LYMPHOCYTES % 7.7 % (15.0-51.0); MEAN CORPUSCULAR HEMOGLOBIN 29.3 pg (29.0-33.0); MEAN CORPUSCULAR HGB CONC 32.7 g/dl (32.0-37.0); MEAN CORPUSCULAR VOLUME 89.7 fl (82.0-101.0); MEAN PLATELET VOLUME 10.8 fl (7.4-10.4); NEUTROPHIL # 20.7 10^3/ul (1.6-7.5); NEUTROPHILS % 84.6 % (39.0-77.0); PLATELET COUNT 294 10^3/UL (140-415); POSITIVE DIFF @See below; RED BLOOD COUNT 3.89 10^6/ul (4.70-6.10); RED CELL DISTRIBUTION WIDTH 14.4 % (11.5-14.5)
[2018-04-08 05:17] LABS: AMYLASE 315 U/L (11-123)
[2018-04-08 05:17] LABS: LIPASE 1718 U/L (23-300)
[2018-04-08 05:20] LABS: VANCOMYCIN,RANDOM 9.1 ug/ml
[2018-04-08 05:20] LABS: INR 1.39; PROTIME 17.3 Sec (11.9-14.9); PT RATIO 1.4
[2018-04-08 05:21] LABS: PARTIAL THROMBOPLASTIN TIME 41.1 Sec (23.0-35.0)
[2018-04-08 05:24] LABS: ALANINE AMINOTRANSFERASE 20 IU/L (13-69); ALBUMIN/GLOBULIN RATIO 1.11; ALKALINE PHOSPHATASE 135 IU/L (42-121); ANION GAP 17 (5-13); ASPARTATE AMINO TRANSFERASE 19 IU/L (15-46); BLOOD UREA NITROGEN 74 mg/dl (7-20); CALCIUM 8.2 mg/dl (8.4-10.2); CARBON DIOXIDE 20 mmol/L (21-31); CHLORIDE 103 mmol/L (97-110); Estimated GFR 9 mL/min (>60); GLUCOSE 122 mg/dl (70-220); MAGNESIUM 2.3 mg/dl (1.7-2.5); POTASSIUM 4.9 mmol/L (3.5-5.1); SODIUM 140 mmol/L (135-144); TOTAL PROTEIN 5.7 g/dl (6.1-8.1)
[2018-04-08] MEDS: PIPER-TAZO 2.25 GM (PMX) 50 ML IVPB ×3 (05:59→21:05)
[2018-04-08] MEDS: PANTOPRAZOLE 40 MG INJ IV (06:00)
[2018-04-08] MEDS: HEPARIN 5,000 UNIT/1 ML VIAL SC ×3 (06:00→21:07)
[2018-04-08] MEDS: ACETAMINOPHEN 650 MG SUPP PR ×4 (06:00→17:35)
[2018-04-08] MEDS: LORAZEPAM 2 MG INJ IV ×2 (06:12→21:25)
[2018-04-08] MEDS: LEVETIRACETAM 1000 MG (PMX) 100 ML IVPB (07:58)
[2018-04-08] MEDS: ASPIRIN 300 MG SUPP PR (09:42)
[2018-04-08] MEDS: VANCOMYCIN 1 GM 250 ML IVPB (09:43)
[2018-04-08 10:03] LABS: CALCIUM 7.9 mg/dl (8.4-10.2)
[2018-04-08 10:13] LABS: INR 1.33; PROTIME 16.7 Sec (11.9-14.9); PT RATIO 1.3
[2018-04-08 10:14] LABS: PARTIAL THROMBOPLASTIN TIME 32.2 Sec (23.0-35.0)
[2018-04-08 10:54] LABS: AADO2 Arterial 153.9 mmHg (7.0-24.0); Allen Test ACCEPTAB; Arterial Base Excess -3.9 mmol/L (-3.0-3); Arterial Blood Gas Oxygen Sat 96.5 mmHG (95.0-98.0); Arterial COHb 0.3 % (0.0-3.0); Arterial Fraction of Oxyhgb 95.9 % (93.0-99.0); Arterial MetHb 0.3 % (0.0-1.5); Arterial Total Hemglobin 11.8 g/dl (12.0-18.0); Arterial pCO2 32.5 mmhg (35-45); MODE VENT - AC; Site Right Radial
[2018-04-08 10:56] LABS: FREE T4 (FREE THYROXINE) 1.64 ng/dl (0.64-1.79)
[2018-04-08 11:21] LABS: ADD MAN DIFF? NO
[2018-04-08 11:24] LABS: BASOPHIL # 0.1 10^3/ul (0.0-0.1); BASOPHILS % 0.5 % (0.0-2.0); EOSINOPHILS # 0.1 10^3/ul (0.0-0.5); EOSINOPHILS % 0.6 % (0.0-7.0); HEMATOCRIT 33.9 % (42.0-52.0); HEMOGLOBIN 11.3 g/dl (14.0-18.0); LYMPHOCYTES # 2.2 10^3/ul (0.8-2.9); LYMPHOCYTES % 9.3 % (15.0-51.0); MEAN CORPUSCULAR HEMOGLOBIN 30.1 pg (29.0-33.0); MEAN CORPUSCULAR HGB CONC 33.3 g/dl (32.0-37.0); MEAN CORPUSCULAR VOLUME 90.2 fl (82.0-101.0); MEAN PLATELET VOLUME 10.7 fl (7.4-10.4); MONOCYTE # 0.9 10^3/ul (0.3-0.9); MONOCYTES % 3.9 % (0.0-11.0); NEUTROPHIL # 19.3 10^3/ul (1.6-7.5); NEUTROPHILS % 82.9 % (39.0-77.0); PLATELET COUNT 271 10^3/UL (140-415); POSITIVE DIFF @See below; RED BLOOD COUNT 3.76 10^6/ul (4.70-6.10); RED CELL DISTRIBUTION WIDTH 14.3 % (11.5-14.5)
[2018-04-08 11:24] LABS: WHITE BLOOD COUNT 23.3 10^3/ul (4.8-10.8)
[2018-04-08 11:29] LABS: ALANINE AMINOTRANSFERASE 25 IU/L (13-69); ALBUMIN 2.6 g/dl (3.3-4.9); ALBUMIN/GLOBULIN RATIO 1.08; ALKALINE PHOSPHATASE 159 IU/L (42-121); AMYLASE 267 U/L (11-123); ANION GAP 16 (5-13); ASPARTATE AMINO TRANSFERASE 23 IU/L (15-46); BLOOD UREA NITROGEN 80 mg/dl (7-20); CALCIUM 8.1 mg/dl (8.4-10.2); CARBON DIOXIDE 19 mmol/L (21-31); CHLORIDE 103 mmol/L (97-110); CREATININE 6.46 mg/dl (0.61-1.24); Estimated GFR 9 mL/min (>60); GLUCOSE 133 mg/dl (70-220); LIPASE 1475 U/L (23-300); MAGNESIUM 2.3 mg/dl (1.7-2.5); PHOSPHORUS 7.4 mg/dl (2.5-4.9); POTASSIUM 5.2 mmol/L (3.5-5.1); SODIUM 138 mmol/L (135-144)
[2018-04-08 11:40] LABS: TROPONIN-I 0.091 ng/ml (0.000-0.120)
[2018-04-08 12:30] LABS: BAND NEUTROPHILS #M 5.3 10^3/ul (0.0-0.6); BAND NEUTROPHILS % (M) 23 % (0-4); BASOPHIL #M 0.4 10^3/ul (0.0-0.0); BASOPHILS % (M) 2 % (0-2); BURR CELLS 3+ (0-0); LYMPHOCYTES #M 1.1 10^3/ul (0.8-2.9); LYMPHOCYTES % (M) 5 % (15-51); MONOCYTE #M 0.4 10^3/ul (0.3-0.9); MONOCYTES % (M) 2 % (0-11); PLATELET ESTIMATE NORMAL; POIKILOCYTOSIS 2+ (0-0); REACTIVE LYMPHOCYTES #M 0.9 10^3/ul (0.0-0.0); REACTIVE LYMPHOCYTES% (M) 4 % (0-0); SEG NEUT #M 16.1 10^3/ul (1.6-7.5); SEGMENTED NEUTROPHILS (M) % 64 % (39-77); SMUDGE%M 3 % (0-0); SPHEROCYTES 1+ (0-0)
[2018-04-08 15:15] LABS: WHITE BLOOD COUNT 20.2 10^3/ul (4.8-10.8)
[2018-04-08 15:15] LABS: HEMOGLOBIN 10.6 g/dl (14.0-18.0); MEAN CORPUSCULAR HEMOGLOBIN 29.9 pg (29.0-33.0); MEAN CORPUSCULAR HGB CONC 33.1 g/dl (32.0-37.0); MEAN CORPUSCULAR VOLUME 90.4 fl (82.0-101.0); MEAN PLATELET VOLUME 9.7 fl (7.4-10.4); PLATELET COUNT 250 10^3/UL (140-415); POSITIVE DIFF @See below; RED BLOOD COUNT 3.54 10^6/ul (4.70-6.10); RED CELL DISTRIBUTION WIDTH 14.6 % (11.5-14.5)
[2018-04-08 15:32] LABS: ADD MAN DIFF? YES
[2018-04-08 15:36] LABS: ALANINE AMINOTRANSFERASE 26 IU/L (13-69); ALBUMIN 2.8 g/dl (3.3-4.9); ALBUMIN/GLOBULIN RATIO 1.03; ALKALINE PHOSPHATASE 138 IU/L (42-121); AMYLASE 220 U/L (11-123); ANION GAP 16 (5-13); ASPARTATE AMINO TRANSFERASE 19 IU/L (15-46); BLOOD UREA NITROGEN 83 mg/dl (7-20); CARBON DIOXIDE 19 mmol/L (21-31); CHLORIDE 103 mmol/L (97-110); CREATININE 6.79 mg/dl (0.61-1.24); Estimated GFR 9 mL/min (>60); GLUCOSE 123 mg/dl (70-220); INR 1.42; LIPASE 818 U/L (23-300); MAGNESIUM 2.3 mg/dl (1.7-2.5); PHOSPHORUS 7.7 mg/dl (2.5-4.9); POTASSIUM 5.2 mmol/L (3.5-5.1); PROTIME 17.6 Sec (11.9-14.9); PT RATIO 1.4; SODIUM 138 mmol/L (135-144); TOTAL PROTEIN 5.5 g/dl (6.1-8.1)
[2018-04-08 15:47] LABS: TROPONIN-I 0.065 ng/ml (0.000-0.120)
[2018-04-08] MEDS: FENTAnyl (DRIP) 1000 mcg/100mL 100 ML IV (16:25)
[2018-04-08 16:39] LABS: BAND NEUTROPHILS #M 0.2 10^3/ul (0.0-0.6); BAND NEUTROPHILS % (M) 1 % (0-4); BASOPHIL #M 0.2 10^3/ul (0.0-0.0); BASOPHILS % (M) 1 % (0-2); GIANT THROMBO% (M) 2 % (0-0); LYMPHOCYTES #M 2.6 10^3/ul (0.8-2.9); LYMPHOCYTES % (M) 13 % (15-51); MYELOCYTES #M 0.2 10^3/ul (0.0-0.0); MYELOCYTES % (M) 1 % (0-0); PLATELET ESTIMATE NORMAL; POIKILOCYTOSIS 3+ (0-0); REACTIVE LYMPHOCYTES #M 0.2 10^3/ul (0.0-0.0); REACTIVE LYMPHOCYTES% (M) 1 % (0-0); SEG NEUT #M 16.8 10^3/ul (1.6-7.5); SEGMENTED NEUTROPHILS (M) % 83 % (39-77); SMUDGE%M 26 % (0-0)
[2018-04-08] MEDS: PROPOFOL 100 ML IV (20:20)
[2018-04-08] MEDS: SOD CHLORIDE 0.9% 1,000 ML IV (21:05)
[2018-04-08] MEDS: LEVETIRACETAM 500 MG (PMX) 100 ML IVPB (21:05)
[2018-04-08] MEDS: ATORVASTATIN 20 MG TAB PO (21:05)
[2018-04-09] MEDS: OCULAR LUBRICANT 3.5 GM OPH OINT BOTH EYES ×2 (01:01→05:03)
[2018-04-09] MEDS: ARTIFICIAL TEARS 15 ML OPH BOTH EYES ×5 (01:01→23:43)
[2018-04-09] MEDS: ACETAMINOPHEN 650 MG SUPP PR ×2 (01:02→05:03)
[2018-04-09] MEDS: PHENYLephrine 40 MG in DEXTROSE 5% 496 ML IV (04:03)
[2018-04-09] MEDS: PROPOFOL 100 ML IV ×3 (04:40→23:31)
[2018-04-09] MEDS: ACETAMINOPHEN 650MG/20.3ML CUP PO ×4 (04:41→21:30)
[2018-04-09] MEDS ORDERED: HEPARIN 5,000 UNIT/0.5 ML VIAL ×3 (05:01→21:15)
[2018-04-09] MEDS: PIPER-TAZO 2.25 GM (PMX) 50 ML IVPB ×3 (05:03→21:20)
[2018-04-09] MEDS: PANTOPRAZOLE 40 MG INJ IV (05:03)
[2018-04-09] MEDS: HEPARIN 5,000 UNIT/1 ML VIAL SC ×3 (05:04→21:29)
[2018-04-09 05:32] LABS: WHITE BLOOD COUNT 13.5 10^3/ul (4.8-10.8)
[2018-04-09 05:32] LABS: HEMATOCRIT 31.7 % (42.0-52.0); HEMOGLOBIN 10.3 g/dl (14.0-18.0); MEAN CORPUSCULAR HEMOGLOBIN 29.9 pg (29.0-33.0); MEAN CORPUSCULAR HGB CONC 32.5 g/dl (32.0-37.0); MEAN CORPUSCULAR VOLUME 91.9 fl (82.0-101.0); MEAN PLATELET VOLUME 10.5 fl (7.4-10.4); PLATELET COUNT 223 10^3/UL (140-415); POSITIVE DIFF @See below; RED BLOOD COUNT 3.45 10^6/ul (4.70-6.10); RED CELL DISTRIBUTION WIDTH 14.5 % (11.5-14.5)
[2018-04-09 05:35] LABS: ADD MAN DIFF? YES
[2018-04-09 05:38] LABS: ANION GAP 11 (5-13); BLOOD UREA NITROGEN 47 mg/dl (7-20); CALCIUM 7.9 mg/dl (8.4-10.2); CARBON DIOXIDE 26 mmol/L (21-31); CHLORIDE 99 mmol/L (97-110); CREATININE 3.97 mg/dl (0.61-1.24); Estimated GFR 16 mL/min (>60); GLUCOSE 159 mg/dl (70-220); PHOSPHORUS 5.4 mg/dl (2.5-4.9); POTASSIUM 4.2 mmol/L (3.5-5.1); SODIUM 136 mmol/L (135-144)
[2018-04-09 06:57] LABS: ANISOCYTOSIS 1+ (0-0); BAND NEUTROPHILS #M 0.8 10^3/ul (0.0-0.6); BAND NEUTROPHILS % (M) 6 % (0-4); BURR CELLS 1+ (0-0); EOSINOPHILS % (M) 2 % (0-7); LYMPHOCYTES #M 1.7 10^3/ul (0.8-2.9); LYMPHOCYTES % (M) 13 % (15-51); MONOCYTE #M 0.4 10^3/ul (0.3-0.9); MONOCYTES % (M) 3 % (0-11); PLATELET ESTIMATE NORMAL; POIKILOCYTOSIS 2+ (0-0); SEG NEUT #M 10.4 10^3/ul (1.6-7.5); SEGMENTED NEUTROPHILS (M) % 76 % (39-77); SMUDGE%M 1 % (0-0)
[2018-04-09 09:03] LABS: AADO2 Arterial 164.6 mmHg (7.0-24.0); Arterial Base Excess -0.4 mmol/L (-3.0-3); Arterial Blood Gas Oxygen Sat 95.6 mmHG (95.0-98.0); Arterial COHb 0.5 % (0.0-3.0); Arterial Fraction of Oxyhgb 94.8 % (93.0-99.0); Arterial HCO3 22.6 mmol/L (22.0-26.0); Arterial MetHb 0.3 % (0.0-1.5); Arterial pCO2 31.7 mmhg (35-45); MODE VENT - AC; Site Right Brachial
[2018-04-09] MEDS: LEVETIRACETAM 500 MG (PMX) 100 ML IVPB ×2 (09:47→22:26)
[2018-04-09] MEDS: ASPIRIN 300 MG SUPP PR (09:54)
[2018-04-09 10:22] LABS: HEMOGLOBIN A1C 6.2 % (0-5.9)
[2018-04-09] MEDS: SOD CHLORIDE 0.9% 1,000 ML IV (14:30)
[2018-04-09] MEDS: ATORVASTATIN 20 MG TAB PO (21:20)
[2018-04-09] MEDS: LORAZEPAM 2 MG INJ IV (23:38)
[2018-04-10] MEDS: ACETAMINOPHEN 650MG/20.3ML CUP PO ×2 (04:12→09:45)
[2018-04-10] MEDS ORDERED: HEPARIN 5,000 UNIT/0.5 ML VIAL ×3 (05:40→21:02)
[2018-04-10] MEDS: ARTIFICIAL TEARS 15 ML OPH BOTH EYES ×3 (05:42→17:47)
[2018-04-10] MEDS: PANTOPRAZOLE 40 MG INJ IV (05:42)
[2018-04-10] MEDS: PIPER-TAZO 2.25 GM (PMX) 50 ML IVPB ×3 (05:42→21:40)
[2018-04-10] MEDS: HEPARIN 5,000 UNIT/1 ML VIAL SC ×3 (05:44→21:55)
[2018-04-10 06:14] LABS: ADD MAN DIFF? NO
[2018-04-10 06:20] LABS: BASOPHIL # 0.1 10^3/ul (0.0-0.1); BASOPHILS % 0.5 % (0.0-2.0); EOSINOPHILS # 0.3 10^3/ul (0.0-0.5); EOSINOPHILS % 2.5 % (0.0-7.0); HEMATOCRIT 30.2 % (42.0-52.0); HEMOGLOBIN 9.5 g/dl (14.0-18.0); LYMPHOCYTES # 1.6 10^3/ul (0.8-2.9); LYMPHOCYTES % 14.8 % (15.0-51.0); MEAN CORPUSCULAR HEMOGLOBIN 29.5 pg (29.0-33.0); MEAN CORPUSCULAR HGB CONC 31.5 g/dl (32.0-37.0); MEAN CORPUSCULAR VOLUME 93.8 fl (82.0-101.0); MEAN PLATELET VOLUME 10.9 fl (7.4-10.4); MONOCYTE # 0.7 10^3/ul (0.3-0.9); NEUTROPHIL # 7.9 10^3/ul (1.6-7.5); NEUTROPHILS % 74.4 % (39.0-77.0); PLATELET COUNT 184 10^3/UL (140-415); RED BLOOD COUNT 3.22 10^6/ul (4.70-6.10); RED CELL DISTRIBUTION WIDTH 14.6 % (11.5-14.5)
[2018-04-10 06:20] LABS: WHITE BLOOD COUNT 10.6 10^3/ul (4.8-10.8)
[2018-04-10 06:51] LABS: ANION GAP 12 (5-13); BLOOD UREA NITROGEN 58 mg/dl (7-20); CARBON DIOXIDE 23 mmol/L (21-31); CHLORIDE 103 mmol/L (97-110); CREATININE 5.07 mg/dl (0.61-1.24); Estimated GFR 12 mL/min (>60); GLUCOSE 115 mg/dl (70-220); MAGNESIUM 2.3 mg/dl (1.7-2.5); PHOSPHORUS 7.8 mg/dl (2.5-4.9); POTASSIUM 4.3 mmol/L (3.5-5.1); SODIUM 138 mmol/L (135-144)
[2018-04-10] MEDS: SOD CHLORIDE 0.9% 1,000 ML IV (08:04)
[2018-04-10] MEDS: ASPIRIN 81 MG TAB PO (09:44)
[2018-04-10] MEDS: LEVETIRACETAM 500 MG (PMX) 100 ML IVPB ×2 (09:44→20:38)
[2018-04-10] MEDS: VALPROATE INJ 1,000 MG in SOD CHLORIDE 0.9% 100 ML IVPB (10:55)
[2018-04-10 12:22] LABS: VALPROATE < 10 ug/ml (50-100)
[2018-04-10] MEDS: PROPOFOL 100 ML IV ×3 (13:10→22:21)
[2018-04-10 16:24] LABS: VALPROATE 10 ug/ml (50-100)
[2018-04-10] MEDS: LORAZEPAM 2 MG INJ IV (17:47)
[2018-04-10] MEDS: VALPROATE INJ 500 MG in SOD CHLORIDE 0.9% 50 ML IVPB ×2 (17:53→21:40)
[2018-04-10] MEDS: ATORVASTATIN 20 MG TAB PO (21:05)
[2018-04-11] MEDS: MIDAZOLAM (DRIP) 50 mg/50 mL 50 ML IV (02:59)
[2018-04-11] MEDS: PROPOFOL 100 ML IV ×3 (02:59→17:37)
[2018-04-11] MEDS: SOD CHLORIDE 0.9% 1,000 ML IV ×2 (04:04→23:16)
[2018-04-11] MEDS ORDERED: HEPARIN 5,000 UNIT/0.5 ML VIAL ×3 (05:39→22:26)
[2018-04-11] MEDS: PANTOPRAZOLE 40 MG INJ IV (05:47)
[2018-04-11] MEDS: ARTIFICIAL TEARS 15 ML OPH BOTH EYES ×5 (05:47→23:16)
[2018-04-11] MEDS: PIPER-TAZO 2.25 GM (PMX) 50 ML IVPB ×3 (05:48→22:28)
[2018-04-11] MEDS: HEPARIN 5,000 UNIT/1 ML VIAL SC ×3 (05:55→22:30)
[2018-04-11 06:15] LABS: ADD MAN DIFF? NO
[2018-04-11 06:23] LABS: WHITE BLOOD COUNT 10.5 10^3/ul (4.8-10.8)
[2018-04-11 06:23] LABS: BASOPHILS % 0.4 % (0.0-2.0); EOSINOPHILS # 0.5 10^3/ul (0.0-0.5); EOSINOPHILS % 4.3 % (0.0-7.0); HEMATOCRIT 31.2 % (42.0-52.0); HEMOGLOBIN 9.9 g/dl (14.0-18.0); LYMPHOCYTES # 1.6 10^3/ul (0.8-2.9); LYMPHOCYTES % 15.1 % (15.0-51.0); MEAN CORPUSCULAR HEMOGLOBIN 29.7 pg (29.0-33.0); MEAN CORPUSCULAR HGB CONC 31.7 g/dl (32.0-37.0); MEAN CORPUSCULAR VOLUME 93.7 fl (82.0-101.0); MEAN PLATELET VOLUME 10.5 fl (7.4-10.4); MONOCYTE # 0.9 10^3/ul (0.3-0.9); MONOCYTES % 8.7 % (0.0-11.0); NEUTROPHIL # 7.4 10^3/ul (1.6-7.5); NEUTROPHILS % 70.6 % (39.0-77.0); PLATELET COUNT 201 10^3/UL (140-415); RED BLOOD COUNT 3.33 10^6/ul (4.70-6.10); RED CELL DISTRIBUTION WIDTH 14.5 % (11.5-14.5)
[2018-04-11 06:52] LABS: ANION GAP 11 (5-13); BLOOD UREA NITROGEN 34 mg/dl (7-20); CALCIUM 8.2 mg/dl (8.4-10.2); CARBON DIOXIDE 26 mmol/L (21-31); CHLORIDE 102 mmol/L (97-110); CREATININE 3.59 mg/dl (0.61-1.24); Estimated GFR 18 mL/min (>60); GLUCOSE 80 mg/dl (70-220); MAGNESIUM 2.1 mg/dl (1.7-2.5); PHOSPHORUS 5.8 mg/dl (2.5-4.9); POTASSIUM 3.7 mmol/L (3.5-5.1); SODIUM 139 mmol/L (135-144)
[2018-04-11 06:59] LABS: VANCOMYCIN,RANDOM 8.2 ug/ml
[2018-04-11] MEDS: ASPIRIN 81 MG TAB PO (09:50)
[2018-04-11] MEDS: LEVETIRACETAM 500 MG (PMX) 100 ML IVPB ×2 (09:50→21:21)
[2018-04-11] MEDS: LORAZEPAM 2 MG INJ IV ×3 (10:02→23:05)
[2018-04-11] MEDS: VALPROATE INJ 500 MG in SOD CHLORIDE 0.9% 50 ML IVPB ×2 (11:19→16:21)
[2018-04-11] MEDS: VANCOMYCIN 1 GM 250 ML IVPB (12:27)
[2018-04-11] MEDS: LIDOCAINE 1% (MPF) 5 ML VIAL SC (15:25)
[2018-04-11 16:31] LABS: VALPROATE 22 ug/ml (50-100)
[2018-04-11] MEDS: VALPROATE INJ 1,000 MG in SOD CHLORIDE 0.9% 100 ML IVPB (17:03)
[2018-04-11 19:53] LABS: VALPROATE 45 ug/ml (50-100)
[2018-04-11] MEDS: VALPROATE INJ 750 MG in SOD CHLORIDE 0.9% 50 ML IVPB (20:24)
[2018-04-11] MEDS: ATORVASTATIN 20 MG TAB PO (21:21)
[2018-04-11] MEDS: hydrALAzine 20 MG INJ IV (23:16)
[2018-04-12] MEDS: VALPROATE INJ 750 MG in SOD CHLORIDE 0.9% 50 ML IVPB ×4 (02:07→20:23)
[2018-04-12] MEDS: LORAZEPAM 2 MG INJ IV ×4 (02:25→18:47)
[2018-04-12] MEDS ORDERED: HEPARIN 5,000 UNIT/0.5 ML VIAL ×3 (05:34→21:30)
[2018-04-12] MEDS: PANTOPRAZOLE 40 MG INJ IV (05:36)
[2018-04-12] MEDS: PIPER-TAZO 2.25 GM (PMX) 50 ML IVPB ×3 (05:36→21:51)
[2018-04-12] MEDS: ARTIFICIAL TEARS 15 ML OPH BOTH EYES ×3 (05:37→18:14)
[2018-04-12] MEDS: HEPARIN 5,000 UNIT/1 ML VIAL SC ×3 (05:42→21:50)
[2018-04-12 05:43] LABS: ADD MAN DIFF? NO
[2018-04-12 05:51] LABS: WHITE BLOOD COUNT 7.3 10^3/ul (4.8-10.8)
[2018-04-12 05:51] LABS: BASOPHILS % 0.4 % (0.0-2.0); EOSINOPHILS # 0.3 10^3/ul (0.0-0.5); EOSINOPHILS % 4.5 % (0.0-7.0); HEMOGLOBIN 9.3 g/dl (14.0-18.0); LYMPHOCYTES # 1.5 10^3/ul (0.8-2.9); LYMPHOCYTES % 20.1 % (15.0-51.0); MEAN CORPUSCULAR HEMOGLOBIN 29.5 pg (29.0-33.0); MEAN CORPUSCULAR HGB CONC 32.1 g/dl (32.0-37.0); MEAN CORPUSCULAR VOLUME 92.1 fl (82.0-101.0); MEAN PLATELET VOLUME 10.5 fl (7.4-10.4); MONOCYTE # 0.5 10^3/ul (0.3-0.9); MONOCYTES % 7.2 % (0.0-11.0); NEUTROPHIL # 4.9 10^3/ul (1.6-7.5); NEUTROPHILS % 66.8 % (39.0-77.0); PLATELET COUNT 188 10^3/UL (140-415); RED BLOOD COUNT 3.15 10^6/ul (4.70-6.10); RED CELL DISTRIBUTION WIDTH 14.5 % (11.5-14.5)
[2018-04-12 06:17] LABS: ANION GAP 13 (5-13); BLOOD UREA NITROGEN 43 mg/dl (7-20); CALCIUM 7.9 mg/dl (8.4-10.2); CARBON DIOXIDE 21 mmol/L (21-31); CHLORIDE 107 mmol/L (97-110); CREATININE 4.17 mg/dl (0.61-1.24); Estimated GFR 15 mL/min (>60); GLUCOSE 137 mg/dl (70-220); MAGNESIUM 2.2 mg/dl (1.7-2.5); PHOSPHORUS 7.3 mg/dl (2.5-4.9); POTASSIUM 3.9 mmol/L (3.5-5.1); SODIUM 141 mmol/L (135-144)
[2018-04-12 06:18] LABS: VALPROATE 36 ug/ml (50-100)
[2018-04-12] MEDS: PROPOFOL 100 ML IV ×3 (06:53→18:47)
[2018-04-12] MEDS: LEVETIRACETAM 500 MG (PMX) 100 ML IVPB ×2 (09:07→21:35)
[2018-04-12] MEDS: ASPIRIN 81 MG TAB PO (10:01)
[2018-04-12] MEDS: VALPROATE INJ 1,000 MG in SOD CHLORIDE 0.9% 100 ML IVPB (11:26)
[2018-04-12 14:32] LABS: VALPROATE 37 ug/ml (50-100)
[2018-04-12] MEDS: hydrALAzine 20 MG INJ IV (19:50)
[2018-04-12] MEDS: ATORVASTATIN 20 MG TAB PO (21:46)
[2018-04-13] MEDS: ARTIFICIAL TEARS 15 ML OPH BOTH EYES ×4 (00:07→17:47)
[2018-04-13] MEDS: VALPROATE INJ 750 MG in SOD CHLORIDE 0.9% 50 ML IVPB ×4 (01:49→20:08)
[2018-04-13] MEDS: PROPOFOL 100 ML IV ×4 (04:21→21:33)
[2018-04-13] MEDS: LORAZEPAM 2 MG INJ IV (04:52)
[2018-04-13 04:54] LABS: ADD MAN DIFF? NO
[2018-04-13 04:59] LABS: WHITE BLOOD COUNT 7.6 10^3/ul (4.8-10.8)
[2018-04-13 04:59] LABS: BASOPHILS % 0.4 % (0.0-2.0); EOSINOPHILS # 0.5 10^3/ul (0.0-0.5); EOSINOPHILS % 5.9 % (0.0-7.0); HEMATOCRIT 30.3 % (42.0-52.0); HEMOGLOBIN 9.7 g/dl (14.0-18.0); LYMPHOCYTES # 1.7 10^3/ul (0.8-2.9); LYMPHOCYTES % 22.1 % (15.0-51.0); MEAN CORPUSCULAR HEMOGLOBIN 29.7 pg (29.0-33.0); MEAN CORPUSCULAR VOLUME 92.7 fl (82.0-101.0); MONOCYTE # 0.5 10^3/ul (0.3-0.9); MONOCYTES % 7.1 % (0.0-11.0); NEUTROPHIL # 4.8 10^3/ul (1.6-7.5); NEUTROPHILS % 63.1 % (39.0-77.0); PLATELET COUNT 198 10^3/UL (140-415); RED BLOOD COUNT 3.27 10^6/ul (4.70-6.10); RED CELL DISTRIBUTION WIDTH 13.9 % (11.5-14.5)
[2018-04-13 05:23] LABS: ANION GAP 12 (5-13); BLOOD UREA NITROGEN 32 mg/dl (7-20); CALCIUM 8.5 mg/dl (8.4-10.2); CARBON DIOXIDE 25 mmol/L (21-31); CHLORIDE 104 mmol/L (97-110); CREATININE 3.64 mg/dl (0.61-1.24); Estimated GFR 18 mL/min (>60); GLUCOSE 177 mg/dl (70-220); MAGNESIUM 2.3 mg/dl (1.7-2.5); PHOSPHORUS 5.4 mg/dl (2.5-4.9); POTASSIUM 3.6 mmol/L (3.5-5.1); SODIUM 141 mmol/L (135-144)
[2018-04-13 05:54] LABS: VALPROATE 43 ug/ml (50-100)
[2018-04-13] MEDS ORDERED: HEPARIN 5,000 UNIT/0.5 ML VIAL ×3 (06:12→22:18)
[2018-04-13] MEDS: PANTOPRAZOLE 40 MG INJ IV (06:14)
[2018-04-13] MEDS: PIPER-TAZO 2.25 GM (PMX) 50 ML IVPB ×3 (06:14→22:21)
[2018-04-13] MEDS: HEPARIN 5,000 UNIT/1 ML VIAL SC ×3 (06:15→22:28)
[2018-04-13] MEDS ORDERED: EPOETIN 4000 UNITS/1 ML INJ (ESRD) SC (07:30)
[2018-04-13] MEDS: ASPIRIN 81 MG TAB PO (08:25)
[2018-04-13] MEDS: LEVETIRACETAM 500 MG (PMX) 100 ML IVPB ×2 (08:26→21:29)
[2018-04-13] MEDS: ATORVASTATIN 20 MG TAB PO (21:29)
[2018-04-14] MEDS: ARTIFICIAL TEARS 15 ML OPH BOTH EYES ×4 (00:22→17:20)
[2018-04-14] MEDS: VALPROATE INJ 750 MG in SOD CHLORIDE 0.9% 50 ML IVPB (01:52)
[2018-04-14] MEDS: hydrALAzine 20 MG INJ IV ×2 (01:54→17:35)
[2018-04-14] MEDS: PROPOFOL 100 ML IV ×5 (02:26→21:59)
[2018-04-14 04:20] LABS: ADD MAN DIFF? NO
[2018-04-14 04:24] LABS: BASOPHILS % 0.3 % (0.0-2.0); EOSINOPHILS # 0.6 10^3/ul (0.0-0.5); HEMATOCRIT 28.9 % (42.0-52.0); LYMPHOCYTES # 1.4 10^3/ul (0.8-2.9); LYMPHOCYTES % 20.2 % (15.0-51.0); MEAN CORPUSCULAR HEMOGLOBIN 29.2 pg (29.0-33.0); MEAN CORPUSCULAR HGB CONC 31.1 g/dl (32.0-37.0); MEAN CORPUSCULAR VOLUME 93.8 fl (82.0-101.0); MEAN PLATELET VOLUME 10.1 fl (7.4-10.4); MONOCYTE # 0.4 10^3/ul (0.3-0.9); MONOCYTES % 5.7 % (0.0-11.0); NEUTROPHIL # 4.4 10^3/ul (1.6-7.5); NEUTROPHILS % 64.1 % (39.0-77.0); PLATELET COUNT 210 10^3/UL (140-415); RED BLOOD COUNT 3.08 10^6/ul (4.70-6.10); RED CELL DISTRIBUTION WIDTH 14.1 % (11.5-14.5)
[2018-04-14 04:24] LABS: WHITE BLOOD COUNT 6.9 10^3/ul (4.8-10.8)
[2018-04-14 04:41] LABS: ANION GAP 12 (5-13); BLOOD UREA NITROGEN 43 mg/dl (7-20); CALCIUM 8.3 mg/dl (8.4-10.2); CARBON DIOXIDE 26 mmol/L (21-31); CHLORIDE 104 mmol/L (97-110); CREATININE 5.06 mg/dl (0.61-1.24); Estimated GFR 12 mL/min (>60); GLUCOSE 152 mg/dl (70-220); MAGNESIUM 2.4 mg/dl (1.7-2.5); PHOSPHORUS 6.6 mg/dl (2.5-4.9); POTASSIUM 3.7 mmol/L (3.5-5.1); SODIUM 142 mmol/L (135-144)
[2018-04-14] MEDS ORDERED: HEPARIN 5,000 UNIT/0.5 ML VIAL ×3 (04:53→22:31)
[2018-04-14] MEDS: PIPER-TAZO 2.25 GM (PMX) 50 ML IVPB ×3 (05:02→21:49)
[2018-04-14] MEDS: PANTOPRAZOLE 40 MG INJ IV (05:02)
[2018-04-14] MEDS: HEPARIN 5,000 UNIT/1 ML VIAL SC ×3 (05:04→22:35)
[2018-04-14] MEDS ORDERED: EPOETIN 10000 UNITS/1 ML INJ (ESRD) SC (08:00)
[2018-04-14] MEDS: LEVETIRACETAM 500 MG (PMX) 100 ML IVPB ×2 (08:06→21:22)
[2018-04-14] MEDS: ASPIRIN 81 MG TAB PO (08:40)
[2018-04-14] MEDS: VALPROATE IVPB ×3 (10:17→19:58)
[2018-04-14] MEDS: SOD CHLORIDE 0.9% IVPB ×3 (10:17→19:58)
[2018-04-14] MEDS: VANCOMYCIN 1 GM 250 ML IVPB (11:41)
[2018-04-14] MEDS: ATORVASTATIN 20 MG TAB PO (21:50)
[2018-04-15] MEDS: ARTIFICIAL TEARS 15 ML OPH BOTH EYES ×4 (00:11→18:12)
[2018-04-15] MEDS: VALPROATE IVPB ×4 (03:21→21:24)
[2018-04-15] MEDS: SOD CHLORIDE 0.9% IVPB ×4 (03:21→21:24)
[2018-04-15] MEDS: PROPOFOL 100 ML IV ×5 (03:24→21:31)
[2018-04-15] MEDS ORDERED: HEPARIN 5,000 UNIT/0.5 ML VIAL ×4 (05:23→21:20)
[2018-04-15] MEDS: PANTOPRAZOLE 40 MG INJ IV (05:27)
[2018-04-15] MEDS: PIPER-TAZO 2.25 GM (PMX) 50 ML IVPB ×3 (05:27→21:24)
[2018-04-15] MEDS: HEPARIN 5,000 UNIT/1 ML VIAL SC ×3 (05:33→21:26)
[2018-04-15 06:19] LABS: ADD MAN DIFF? NO
[2018-04-15 06:25] LABS: BASOPHILS % 0.3 % (0.0-2.0); EOSINOPHILS # 0.6 10^3/ul (0.0-0.5); EOSINOPHILS % 6.3 % (0.0-7.0); HEMATOCRIT 30.1 % (42.0-52.0); HEMOGLOBIN 9.7 g/dl (14.0-18.0); LYMPHOCYTES # 1.7 10^3/ul (0.8-2.9); LYMPHOCYTES % 18.4 % (15.0-51.0); MEAN CORPUSCULAR HEMOGLOBIN 29.8 pg (29.0-33.0); MEAN CORPUSCULAR HGB CONC 32.2 g/dl (32.0-37.0); MEAN CORPUSCULAR VOLUME 92.6 fl (82.0-101.0); MEAN PLATELET VOLUME 9.9 fl (7.4-10.4); MONOCYTE # 0.5 10^3/ul (0.3-0.9); MONOCYTES % 5.6 % (0.0-11.0); NEUTROPHIL # 6.2 10^3/ul (1.6-7.5); PLATELET COUNT 226 10^3/UL (140-415); RED BLOOD COUNT 3.25 10^6/ul (4.70-6.10); RED CELL DISTRIBUTION WIDTH 14.1 % (11.5-14.5)
[2018-04-15 06:25] LABS: WHITE BLOOD COUNT 9.1 10^3/ul (4.8-10.8)
[2018-04-15 06:43] LABS: INR 1.04; PROTIME 13.7 Sec (11.9-14.9); PT RATIO 1.1
[2018-04-15 07:01] LABS: ANION GAP 9 (5-13); BLOOD UREA NITROGEN 32 mg/dl (7-20); CALCIUM 8.5 mg/dl (8.4-10.2); CARBON DIOXIDE 28 mmol/L (21-31); CHLORIDE 104 mmol/L (97-110); CREATININE 3.87 mg/dl (0.61-1.24); Estimated GFR 17 mL/min (>60); GLUCOSE 157 mg/dl (70-220); MAGNESIUM 2.4 mg/dl (1.7-2.5); PHOSPHORUS 5.6 mg/dl (2.5-4.9); POTASSIUM 3.9 mmol/L (3.5-5.1); SODIUM 141 mmol/L (135-144)
[2018-04-15] MEDS: LEVETIRACETAM 500 MG (PMX) 100 ML IVPB ×2 (09:13→21:27)
[2018-04-15] MEDS: ASPIRIN 81 MG TAB PO (09:13)
[2018-04-15] MEDS: LORAZEPAM 2 MG INJ IV (12:55)
[2018-04-15] MEDS: ATORVASTATIN 20 MG TAB PO (21:24)
[2018-04-16] MEDS: ARTIFICIAL TEARS 15 ML OPH BOTH EYES ×4 (01:06→17:56)
[2018-04-16] MEDS: SOD CHLORIDE 0.9% IVPB ×4 (02:00→20:19)
[2018-04-16] MEDS: VALPROATE IVPB ×4 (02:00→20:19)
[2018-04-16] MEDS: PIPER-TAZO 2.25 GM (PMX) 50 ML IVPB ×3 (05:20→22:11)
[2018-04-16] MEDS: PANTOPRAZOLE 40 MG INJ IV (05:20)
[2018-04-16] MEDS: PROPOFOL 100 ML IV ×4 (05:21→20:19)
[2018-04-16] MEDS: HEPARIN 5,000 UNIT/1 ML VIAL SC ×3 (05:23→22:12)
[2018-04-16 05:51] LABS: AADO2 Arterial 107.7 mmHg (7.0-24.0); Allen Test ACCEPTAB; Arterial Base Excess 1.2 mmol/L (-3.0-3); Arterial Blood Gas Oxygen Sat 93.6 mmHG (95.0-98.0); Arterial COHb 0.4 % (0.0-3.0); Arterial Fraction of Oxyhgb 93.1 % (93.0-99.0); Arterial MetHb 0.1 % (0.0-1.5); Arterial Total Hemglobin 12.2 g/dl (12.0-18.0); Arterial pCO2 54.3 mmhg (35-45); MODE VENT - AC; Site Right Radial
[2018-04-16 07:55] LABS: ADD MAN DIFF? NO
[2018-04-16 07:57] LABS: BASOPHILS % 0.2 % (0.0-2.0); EOSINOPHILS # 0.6 10^3/ul (0.0-0.5); EOSINOPHILS % 4.6 % (0.0-7.0); HEMOGLOBIN 9.5 g/dl (14.0-18.0); LYMPHOCYTES # 0.9 10^3/ul (0.8-2.9); LYMPHOCYTES % 7.1 % (15.0-51.0); MEAN CORPUSCULAR HEMOGLOBIN 29.5 pg (29.0-33.0); MEAN CORPUSCULAR HGB CONC 31.7 g/dl (32.0-37.0); MEAN CORPUSCULAR VOLUME 93.2 fl (82.0-101.0); MEAN PLATELET VOLUME 9.8 fl (7.4-10.4); MONOCYTE # 0.5 10^3/ul (0.3-0.9); NEUTROPHILS % 83.1 % (39.0-77.0); PLATELET COUNT 222 10^3/UL (140-415); RED BLOOD COUNT 3.22 10^6/ul (4.70-6.10); RED CELL DISTRIBUTION WIDTH 14.2 % (11.5-14.5)
[2018-04-16 07:57] LABS: WHITE BLOOD COUNT 13.2 10^3/ul (4.8-10.8)
[2018-04-16] MEDS: LORAZEPAM 2 MG INJ IV ×3 (07:58→20:06)
[2018-04-16 08:20] LABS: ANION GAP 11 (5-13); BLOOD UREA NITROGEN 45 mg/dl (7-20); CALCIUM 8.5 mg/dl (8.4-10.2); CARBON DIOXIDE 25 mmol/L (21-31); CHLORIDE 105 mmol/L (97-110); CREATININE 4.77 mg/dl (0.61-1.24); Estimated GFR 13 mL/min (>60); GLUCOSE 149 mg/dl (70-220); MAGNESIUM 2.6 mg/dl (1.7-2.5); PHOSPHORUS 7.5 mg/dl (2.5-4.9); POTASSIUM 3.8 mmol/L (3.5-5.1); SODIUM 141 mmol/L (135-144)
[2018-04-16] MEDS: ASPIRIN 81 MG TAB PO (08:49)
[2018-04-16] MEDS: LEVETIRACETAM 500 MG (PMX) 100 ML IVPB ×2 (08:49→21:41)
[2018-04-16] MEDS ORDERED: HEPARIN 5,000 UNIT/0.5 ML VIAL ×2 (13:45→22:09)
[2018-04-16 14:34] LABS: VALPROATE 27 ug/ml (50-100)
[2018-04-16] MEDS: hydrALAzine 20 MG INJ IV (20:15)
[2018-04-16] MEDS: ATORVASTATIN 20 MG TAB PO (21:01)
[2018-04-17] MEDS: ARTIFICIAL TEARS 15 ML OPH BOTH EYES ×4 (00:43→17:53)
[2018-04-17] MEDS: PROPOFOL 100 ML IV ×5 (01:26→19:28)
[2018-04-17] MEDS: VALPROATE IVPB ×3 (02:20→14:36)
[2018-04-17] MEDS: SOD CHLORIDE 0.9% IVPB ×3 (02:20→14:36)
[2018-04-17 05:14] LABS: ADD MAN DIFF? NO
[2018-04-17 05:16] LABS: BASOPHILS % 0.3 % (0.0-2.0); EOSINOPHILS # 0.5 10^3/ul (0.0-0.5); EOSINOPHILS % 3.4 % (0.0-7.0); HEMATOCRIT 27.2 % (42.0-52.0); HEMOGLOBIN 8.7 g/dl (14.0-18.0); LYMPHOCYTES # 1.6 10^3/ul (0.8-2.9); LYMPHOCYTES % 11.3 % (15.0-51.0); MEAN CORPUSCULAR HEMOGLOBIN 29.9 pg (29.0-33.0); MEAN CORPUSCULAR VOLUME 93.5 fl (82.0-101.0); MEAN PLATELET VOLUME 10.1 fl (7.4-10.4); MONOCYTE # 0.8 10^3/ul (0.3-0.9); MONOCYTES % 5.4 % (0.0-11.0); NEUTROPHIL # 11.5 10^3/ul (1.6-7.5); NEUTROPHILS % 78.8 % (39.0-77.0); PLATELET COUNT 221 10^3/UL (140-415); RED BLOOD COUNT 2.91 10^6/ul (4.70-6.10); RED CELL DISTRIBUTION WIDTH 14.5 % (11.5-14.5)
[2018-04-17 05:16] LABS: WHITE BLOOD COUNT 14.5 10^3/ul (4.8-10.8)
[2018-04-17] MEDS ORDERED: HEPARIN 5,000 UNIT/0.5 ML VIAL ×3 (05:34→21:42)
[2018-04-17 05:48] LABS: ANION GAP 9 (5-13); BLOOD UREA NITROGEN 31 mg/dl (7-20); CALCIUM 8.3 mg/dl (8.4-10.2); CARBON DIOXIDE 28 mmol/L (21-31); CHLORIDE 102 mmol/L (97-110); CREATININE 3.54 mg/dl (0.61-1.24); Estimated GFR 18 mL/min (>60); GLUCOSE 123 mg/dl (70-220); MAGNESIUM 2.4 mg/dl (1.7-2.5); PHOSPHORUS 5.2 mg/dl (2.5-4.9); POTASSIUM 3.6 mmol/L (3.5-5.1); SODIUM 139 mmol/L (135-144)
[2018-04-17] MEDS: PIPER-TAZO 2.25 GM (PMX) 50 ML IVPB ×3 (05:58→21:52)
[2018-04-17] MEDS: PANTOPRAZOLE 40 MG INJ IV (05:58)
[2018-04-17] MEDS: HEPARIN 5,000 UNIT/1 ML VIAL SC ×3 (05:59→21:56)
[2018-04-17] MEDS: LORAZEPAM 2 MG INJ IV ×4 (06:51→22:58)
[2018-04-17] MEDS: ASPIRIN 81 MG TAB PO (08:11)
[2018-04-17] MEDS: LEVETIRACETAM 500 MG (PMX) 100 ML IVPB ×2 (09:12→20:47)
[2018-04-17] MEDS: VALPROATE INJ 1,500 MG in SOD CHLORIDE 0.9% 100 ML IVPB (17:53)
[2018-04-17 20:29] LABS: VALPROATE 74 ug/ml (50-100)
[2018-04-17] MEDS: ATORVASTATIN 20 MG TAB PO (20:47)
[2018-04-18] MEDS: VALPROIC ACID LIQUID CUP 250 MG/5 ML CUP NGT ×5 (00:08→23:51)
[2018-04-18] MEDS: ARTIFICIAL TEARS 15 ML OPH BOTH EYES ×5 (00:08→23:51)
[2018-04-18] MEDS: PROPOFOL 100 ML IV ×4 (00:42→22:13)
[2018-04-18] MEDS: ACETAMINOPHEN 650MG/20.3ML CUP PO (01:28)
[2018-04-18 02:55] LABS: LACTIC ACID 1.3 mmol/L (0.5-2.0)
[2018-04-18] MEDS ORDERED: PHENYLephrine 20MG IN 250 ML 0 ML (03:50)
[2018-04-18] MEDS ORDERED: PHENYLephrine 20MG IN 250 ML 250 ML (03:58)
[2018-04-18] MEDS: PHENYLephrine 20MG IN 250 ML 250 ML IV (04:18)
[2018-04-18 05:09] LABS: ADD MAN DIFF? NO
[2018-04-18 05:24] LABS: WHITE BLOOD COUNT 24.5 10^3/ul (4.8-10.8)
[2018-04-18 05:24] LABS: ABNORMAL IP MESSAGE 1; BASOPHIL # 0.1 10^3/ul (0.0-0.1); BASOPHILS % 0.3 % (0.0-2.0); EOSINOPHILS # 0.4 10^3/ul (0.0-0.5); EOSINOPHILS % 1.6 % (0.0-7.0); HEMATOCRIT 30.5 % (42.0-52.0); HEMOGLOBIN 9.6 g/dl (14.0-18.0); LYMPHOCYTES # 1.7 10^3/ul (0.8-2.9); LYMPHOCYTES % 6.9 % (15.0-51.0); MEAN CORPUSCULAR HEMOGLOBIN 29.9 pg (29.0-33.0); MEAN CORPUSCULAR HGB CONC 31.5 g/dl (32.0-37.0); MEAN PLATELET VOLUME 10.1 fl (7.4-10.4); MONOCYTE # 1.5 10^3/ul (0.3-0.9); NEUTROPHIL # 20.6 10^3/ul (1.6-7.5); PLATELET COUNT 262 10^3/UL (140-415); POSITIVE DIFF @See below; RED BLOOD COUNT 3.21 10^6/ul (4.70-6.10); RED CELL DISTRIBUTION WIDTH 14.6 % (11.5-14.5)
[2018-04-18 05:56] LABS: ANION GAP 12 (5-13); BLOOD UREA NITROGEN 40 mg/dl (7-20); CALCIUM 8.3 mg/dl (8.4-10.2); CARBON DIOXIDE 24 mmol/L (21-31); CHLORIDE 103 mmol/L (97-110); CREATININE 4.96 mg/dl (0.61-1.24); Estimated GFR 12 mL/min (>60); GLUCOSE 104 mg/dl (70-220); MAGNESIUM 2.5 mg/dl (1.7-2.5); POTASSIUM 4.1 mmol/L (3.5-5.1); SODIUM 139 mmol/L (135-144)
[2018-04-18] MEDS ORDERED: HEPARIN 5,000 UNIT/0.5 ML VIAL ×3 (06:07→21:04)
[2018-04-18 06:09] LABS: NEUTROPHILS % 84.3 % (39.0-77.0)
[2018-04-18] MEDS: PIPER-TAZO 2.25 GM (PMX) 50 ML IVPB ×3 (06:14→22:12)
[2018-04-18] MEDS: PANTOPRAZOLE 40 MG INJ IV (06:14)
[2018-04-18] MEDS: HEPARIN 5,000 UNIT/1 ML VIAL SC ×3 (06:15→22:11)
[2018-04-18 06:59] LABS: VALPROATE 50 ug/ml (50-100)
[2018-04-18 08:05] LABS: LACTIC ACID 1.2 mmol/L (0.5-2.0)
[2018-04-18] MEDS: LEVETIRACETAM 500 MG (PMX) 100 ML IVPB ×2 (08:35→20:49)
[2018-04-18] MEDS: ASPIRIN 81 MG TAB PO (08:35)
[2018-04-18] MEDS ORDERED: VANCOMYCIN IV PER PHARMACY XX (09:00)
[2018-04-18] MEDS: VANCOMYCIN 1 GM 250 ML IVPB (13:18)
[2018-04-18 15:24] LABS: ANION GAP 12 (5-13); BLOOD UREA NITROGEN 21 mg/dl (7-20); CALCIUM 8.1 mg/dl (8.4-10.2); CARBON DIOXIDE 28 mmol/L (21-31); CHLORIDE 98 mmol/L (97-110); CREATININE 2.69 mg/dl (0.61-1.24); Estimated GFR 25 mL/min (>60); GLUCOSE 118 mg/dl (70-220); MAGNESIUM 2.1 mg/dl (1.7-2.5); POTASSIUM 3.6 mmol/L (3.5-5.1); SODIUM 138 mmol/L (135-144)
[2018-04-18] MEDS ORDERED: AMIODARONE 150MG/D5W BOLUS 100 ML (17:26)
[2018-04-18] MEDS: AMIODARONE 900 MG in DEXTROSE 5% 482 ML IV (17:29)
[2018-04-18] MEDS: ATORVASTATIN 20 MG TAB PO (21:06)
[2018-04-19] MEDS: PROPOFOL 100 ML IV ×5 (02:48→23:36)
[2018-04-19] MEDS ORDERED: HEPARIN 5,000 UNIT/0.5 ML VIAL ×3 (05:24→22:02)
[2018-04-19] MEDS: PIPER-TAZO 2.25 GM (PMX) 50 ML IVPB ×3 (05:36→22:12)
[2018-04-19] MEDS: PANTOPRAZOLE 40 MG INJ IV (05:36)
[2018-04-19] MEDS: ARTIFICIAL TEARS 15 ML OPH BOTH EYES ×3 (05:36→17:08)
[2018-04-19] MEDS: VALPROIC ACID LIQUID CUP 250 MG/5 ML CUP NGT ×3 (05:37→17:08)
[2018-04-19] MEDS: HEPARIN 5,000 UNIT/1 ML VIAL SC ×3 (05:38→22:07)
[2018-04-19 06:21] LABS: ADD MAN DIFF? NO
[2018-04-19 06:28] LABS: BASOPHIL # 0.1 10^3/ul (0.0-0.1); BASOPHILS % 0.4 % (0.0-2.0); EOSINOPHILS # 0.3 10^3/ul (0.0-0.5); EOSINOPHILS % 1.6 % (0.0-7.0); HEMATOCRIT 30.1 % (42.0-52.0); HEMOGLOBIN 9.9 g/dl (14.0-18.0); LYMPHOCYTES # 1.6 10^3/ul (0.8-2.9); MEAN CORPUSCULAR HEMOGLOBIN 31.3 pg (29.0-33.0); MEAN CORPUSCULAR HGB CONC 32.9 g/dl (32.0-37.0); MEAN CORPUSCULAR VOLUME 95.3 fl (82.0-101.0); MEAN PLATELET VOLUME 10.6 fl (7.4-10.4); MONOCYTE # 1.4 10^3/ul (0.3-0.9); MONOCYTES % 8.2 % (0.0-11.0); NEUTROPHIL # 13.7 10^3/ul (1.6-7.5); NEUTROPHILS % 79.9 % (39.0-77.0); PLATELET COUNT 273 10^3/UL (140-415); RED BLOOD COUNT 3.16 10^6/ul (4.70-6.10); RED CELL DISTRIBUTION WIDTH 14.7 % (11.5-14.5)
[2018-04-19 06:28] LABS: WHITE BLOOD COUNT 17.1 10^3/ul (4.8-10.8)
[2018-04-19 06:42] LABS: INR 1.07; PARTIAL THROMBOPLASTIN TIME 38.8 Sec (23.0-35.0); PT RATIO 1.1
[2018-04-19 07:20] LABS: ALBUMIN/GLOBULIN RATIO 0.81; ALKALINE PHOSPHATASE 240 IU/L (42-121); ANION GAP 16 (5-13); ASPARTATE AMINO TRANSFERASE 24 IU/L (15-46); BILIRUBIN,INDIRECT 0.1 mg/dl (0-1.1); BILIRUBIN,TOTAL 0.1 mg/dl (0.2-1.3); BLOOD UREA NITROGEN 27 mg/dl (7-20); CARBON DIOXIDE 23 mmol/L (21-31); CHLORIDE 93 mmol/L (97-110); CREATININE 3.18 mg/dl (0.61-1.24); Estimated GFR 21 mL/min (>60); GLUCOSE 230 mg/dl (70-220); MAGNESIUM 2.2 mg/dl (1.7-2.5); PHOSPHORUS 5.9 mg/dl (2.5-4.9); SODIUM 132 mmol/L (135-144); TOTAL PROTEIN 6.7 g/dl (6.1-8.1)
[2018-04-19 07:25] LABS: ALANINE AMINOTRANSFERASE < 6 IU/L (13-69)
[2018-04-19] MEDS: LEVETIRACETAM 500 MG (PMX) 100 ML IVPB ×2 (08:03→21:25)
[2018-04-19] MEDS: ASPIRIN 81 MG TAB PO (08:03)
[2018-04-19] MEDS: VALPROATE INJ 1,000 MG in SOD CHLORIDE 0.9% 100 ML IVPB (09:19)
[2018-04-19] MEDS: PHENYLephrine 40 MG in DEXTROSE 5% 496 ML IV (13:08)
[2018-04-19] MEDS ORDERED: AMIODARONE 900 MG in DEXTROSE 5% 482 ML IV (14:51)
[2018-04-19] MEDS: AMIODARONE 900 MG in DEXTROSE 5% 482 ML IV (16:33)
[2018-04-19] MEDS: ATORVASTATIN 20 MG TAB PO (21:25)
[2018-04-20] MEDS: ARTIFICIAL TEARS 15 ML OPH BOTH EYES ×4 (01:04→18:39)
[2018-04-20] MEDS: PROPOFOL 100 ML IV ×4 (04:04→19:29)
[2018-04-20] MEDS ORDERED: HEPARIN 5,000 UNIT/0.5 ML VIAL ×3 (05:43→22:08)
[2018-04-20] MEDS: PANTOPRAZOLE 40 MG INJ IV ×2 (05:47→05:49)
[2018-04-20] MEDS: HEPARIN 5,000 UNIT/1 ML VIAL SC ×3 (05:48→22:16)
[2018-04-20] MEDS: PIPER-TAZO 2.25 GM (PMX) 50 ML IVPB ×3 (05:49→21:25)
[2018-04-20] MEDS: VALPROIC ACID LIQUID CUP 250 MG/5 ML CUP NGT ×4 (05:49→18:40)
[2018-04-20] MEDS: ASPIRIN 81 MG TAB PO (09:06)
[2018-04-20] MEDS: LEVETIRACETAM 500 MG (PMX) 100 ML IVPB ×2 (09:06→20:41)
[2018-04-20] MEDS: AMIODARONE 200 MG TAB NGT ×2 (11:14→20:42)
[2018-04-20] MEDS: ATORVASTATIN 20 MG TAB PO (20:41)
[2018-04-21] MEDS: ARTIFICIAL TEARS 15 ML OPH BOTH EYES ×4 (00:11→17:23)
[2018-04-21] MEDS: VALPROIC ACID LIQUID CUP 250 MG/5 ML CUP NGT ×4 (00:13→17:23)
[2018-04-21] MEDS: PROPOFOL 100 ML IV ×3 (01:25→15:50)
[2018-04-21 05:29] LABS: VALPROATE 60 ug/ml (50-100)
[2018-04-21] MEDS ORDERED: HEPARIN 5,000 UNIT/0.5 ML VIAL (05:35)
[2018-04-21] MEDS: PIPER-TAZO 2.25 GM (PMX) 50 ML IVPB ×2 (05:38→13:17)
[2018-04-21] MEDS: PANTOPRAZOLE 40 MG INJ IV (05:38)
[2018-04-21] MEDS: HEPARIN 5,000 UNIT/1 ML VIAL SC ×2 (05:39→13:11)
[2018-04-21] MEDS: LEVETIRACETAM 500 MG (PMX) 100 ML IVPB (08:03)
[2018-04-21] MEDS: ASPIRIN 81 MG TAB PO (08:04)
[2018-04-21] MEDS: AMIODARONE 200 MG TAB NGT (08:04)
[2018-04-21] MEDS: VANCOMYCIN 1 GM 250 ML IVPB (09:39)
[2018-04-21] MEDS: LORAZEPAM 2 MG INJ IV (17:04)
[2018-04-21] MEDS ORDERED: LORAZEPAM 2 MG INJ IV (17:10)
[2018-04-21] MEDS ORDERED: LORAZEPAM 2 MG INJ (17:13)
== END 2018-04-21 17:30 | disposition expired | DRG 207 ==
LOC: E/R 03:09 → ICU 03:58
PROC: 5A1955Z Respiratory Ventilation, Greater than 96 Consecutive Hours (ICD-10-PCS; principal; 2018-04-06)
PROC: 0BH17EZ Insertion of Endotracheal Airway into Trachea, Via Natural or Artificial Opening (ICD-10-PCS; 2018-04-06)
PROC: 5A12012 Performance of Cardiac Output, Single, Manual (ICD-10-PCS; 2018-04-06)
PROC: 06HM33Z Insertion of Infusion Device into Right Femoral Vein, Percutaneous Approach (ICD-10-PCS; 2018-04-06)
PROC: 5A1D70Z Performance of Urinary Filtration, Intermittent, Less than 6 Hours Per Day (ICD-10-PCS; 2018-04-08)
PROC: 02HV33Z Insertion of Infusion Device into Superior Vena Cava, Percutaneous Approach (ICD-10-PCS; 2018-04-11)
DX: J96.01 Acute respiratory failure with hypoxia (principal); A41.9 Sepsis, unspecified organism; R65.21 Severe sepsis with septic shock; N18.6 End stage renal disease; J69.0 Pneumonitis due to inhalation of food and vomit; G92 Toxic encephalopathy; G93.1 Anoxic brain damage, not elsewhere classified; E87.2 Acidosis; I46.9 Cardiac arrest, cause unspecified; E87.5 Hyperkalemia; D63.1 Anemia in chronic kidney disease; Z99.2 Dependence on renal dialysis; J32.0 Chronic maxillary sinusitis; D69.6 Thrombocytopenia, unspecified; G40.901 Epilepsy, unspecified, not intractable, with status epilepticus; I95.89 Other hypotension; I48.0 Paroxysmal atrial fibrillation; R13.10 Dysphagia, unspecified
CPT/HCPCS: 31500; 36415; 36569; 36600; 70450; 71045; 71250; 74018; 74176; 76775; 76937; 80048; 80053; 80164; 80202; 80307; 81001; 82150; 82310; 82550; 82553; 82803; 82962; 83036; 83605; 83690; 83735; 84100; 84439; 84443; 84484; 85025; 85384; 85610; 85730; 86706; 87040; 87081; 87086; 87340; 90935; 92950; 93005; 93306; 94002; 94003; 94770; 95819; 99291-25